=== PATIENT | male | born 1940 | race Caucasian/White ===

== ENCOUNTER 2019-07-08 16:01 | Inpatient (IN) | payer OTHER, MEDICARE ==
[~2019-07-08] VITALS: Ht 188 cm; Wt 92.0 kg
[2019-07-08] VITALS (8 sets, daily range): BP systolic 80–100; BP diastolic 42–63
[2019-07-08] MEDS ORDERED: LEVOTHYROXIN50 MCG PO (16:42)
[2019-07-08] MEDS ORDERED: CARVEDILOL25 MG PO (16:43)
[2019-07-08] MEDS ORDERED: ENTRESTO 24-261 TAB (16:44)
[2019-07-08 16:45] LABS: HEMATOCRIT 42.7 % (39.0-50.0); HEMOGLOBIN 13.8 g/dl (14.0-18.0); IMMATURE GRANULOCYTES 0.5 % (0.0-5.0); MEAN CELL VOLUME 87.7 fL CALC (80.0-100.0); MEAN CORPUSCULAR HGB 28.3 pG CALC (26.0-32.0); MEAN CORPUSCULAR HGB CONC 32.3 g/L CALC (32.0-36.0); NEUT# 6.78 thou/uL (1.82-7.42); RED BLOOD COUNT 4.87 mill/uL (4.70-6.10); RED CELL DISTRI WIDTH 17.7 % (11.5-15.5)
[2019-07-08] MEDS ORDERED: SIMVASTATIN40 MG PO (16:45)
[2019-07-08] MEDS ORDERED: SPIRONOLACT25 MG PO (16:45)
[2019-07-08] MEDS ORDERED: FUROSEMIDE20 MG PO (16:46)
[2019-07-08] MEDS ORDERED: PROTONIX40 M2 PO (16:46)
[2019-07-08] MEDS ORDERED: ASPIRIN81 MG PO (16:46)
[2019-07-08] MEDS ORDERED: B-12 10001000 MCG (16:47)
[2019-07-08] MEDS ORDERED: VITAMIN D-3400 UNIT PO (16:48)
[2019-07-08 16:58] LABS: INTERNATIONAL NORMALIZED RATIO 1.9 RATIO (0.7-1.3); PROTHROMBIN TIME 18.9 SECONDS (9.0-12.5)
[2019-07-08 17:16] LABS: ALBUMIN 3.2 g/dL (3.2-5.0); TOTAL PROTEIN 6.2 g/dL (6.3-8.2)
[2019-07-08 17:17] LABS: BILIRUBIN, TOTAL 2.2 mg/dL (0.0-1.4); CREATININE 3.1 mg/dL (0.7-1.3); POTASSIUM 4.7 mmol/l (3.5-5.1)
[2019-07-08 17:24] LABS: URINE BLOOD DIPSTICK NEGATIVE (NEGATIVE); URINE COLOR YELLOW; URINE GLUCOSE - DIPSTICK NEGATIVE (NEGATIVE); URINE KETONE NEGATIVE (NEGATIVE); URINE LEUK ESTERASE NEGATIVE (NEGATIVE); URINE NITRITE - DIPSTICK NEGATIVE (Negative); URINE PROTEIN - DIPSTICK TRACE mg/dL (NEG-TRACE); URINE SPECIFIC GRAVITY >=1.030
[2019-07-08 17:25] LABS: URINE BILIRUBIN - DIPSTICK SMALL (NEGATIVE)
[2019-07-08 17:46] LABS: TSH, 3RD GENERATION 5.86 uIU/mL (0.47 - 4.68)
[2019-07-09] VITALS (16 sets, daily range): BP systolic 81–101; BP diastolic 51–70
[2019-07-09 04:47] LABS: HEMOGLOBIN 14.7 g/dl (14.0-18.0); IMMATURE GRANULOCYTES 0.5 % (0.0-5.0); MEAN CELL VOLUME 87.5 fL CALC (80.0-100.0); MEAN CORPUSCULAR HGB 28.6 pG CALC (26.0-32.0); MEAN CORPUSCULAR HGB CONC 32.7 g/L CALC (32.0-36.0); NEUT# 5.94 thou/uL (1.82-7.42); RED BLOOD COUNT 5.14 mill/uL (4.70-6.10); RED CELL DISTRI WIDTH 17.8 % (11.5-15.5)
[2019-07-09 05:09] LABS: ALBUMIN 3.2 g/dL (3.2-5.0); BILIRUBIN, TOTAL 2.5 mg/dL (0.0-1.4); CREATININE 2.6 mg/dL (0.7-1.3); POTASSIUM 4.1 mmol/l (3.5-5.1); TOTAL PROTEIN 6.2 g/dL (6.3-8.2)
[2019-07-09] MEDS ORDERED: CARVEDILOL12.5 MG PO (12:24)
[2019-07-10 00:02] VITALS: BP 95/57
[2019-07-10 03:59] VITALS: BP 95/56
[2019-07-10 05:31] LABS: HEMATOCRIT 39.2 % (39.0-50.0); HEMOGLOBIN 12.9 g/dl (14.0-18.0); IMMATURE GRANULOCYTES 0.5 % (0.0-5.0); MEAN CELL VOLUME 87.9 fL CALC (80.0-100.0); MEAN CORPUSCULAR HGB 28.9 pG CALC (26.0-32.0); MEAN CORPUSCULAR HGB CONC 32.9 g/L CALC (32.0-36.0); NEUT# 4.24 thou/uL (1.82-7.42); RED BLOOD COUNT 4.46 mill/uL (4.70-6.10); RED CELL DISTRI WIDTH 17.8 % (11.5-15.5)
[2019-07-10 05:37] LABS: MAGNESIUM 1.9 mg/dL (1.6-2.3); POTASSIUM 3.9 mmol/l (3.5-5.1)
[2019-07-10 10:40] VITALS: BP 91/52
[2019-07-10 15:00] VITALS: BP 94/57
[2019-07-10 19:07] VITALS: BP 100/59
[2019-07-10 23:49] VITALS: BP 90/55
[2019-07-11 04:23] VITALS: BP 90/51
[2019-07-11 04:42] LABS: HEMATOCRIT 39.2 % (39.0-50.0); HEMOGLOBIN 12.9 g/dl (14.0-18.0); IMMATURE GRANULOCYTES 0.5 % (0.0-5.0); MEAN CELL VOLUME 87.7 fL CALC (80.0-100.0); MEAN CORPUSCULAR HGB 28.9 pG CALC (26.0-32.0); MEAN CORPUSCULAR HGB CONC 32.9 g/L CALC (32.0-36.0); NEUT# 2.71 thou/uL (1.82-7.42); RED BLOOD COUNT 4.47 mill/uL (4.70-6.10); RED CELL DISTRI WIDTH 17.9 % (11.5-15.5)
[2019-07-11 04:58] LABS: CREATININE 1.8 mg/dL (0.7-1.3); POTASSIUM 4.1 mmol/l (3.5-5.1)
[2019-07-11 07:45] VITALS: BP 99/65
[2019-07-11 11:22] VITALS: BP 88/59
[2019-07-11] MEDS ORDERED: ZITHROMAX500 MG PO (11:44)
== END 2019-07-11 15:41 | disposition home health service (06) | DRG 372 ==
LOC: ED 16:01 → ED-I 19:51 → MS2 20:09 → ICU 20:09 → ED 20:09 → MS2 07-09 14:11
PROVIDERS: Family Medicine; Nurse Practitioner Family; ADMIT Internal Medicine; ATTEND Internal Medicine
DX: A04.0 Enteropathogenic Escherichia coli infection (principal); N17.9 Acute kidney failure, unspecified; I13.0 Hypertensive heart and chronic kidney disease with heart failure and stage 1 through stage 4 chronic kidney disease, or unspecified chronic kidney disease; I50.9 Heart failure, unspecified; E03.9 Hypothyroidism, unspecified; E86.0 Dehydration; H54.62 Unqualified visual loss, left eye, normal vision right eye; I25.10 Atherosclerotic heart disease of native coronary artery without angina pectoris; Z90.49 Acquired absence of other specified parts of digestive tract; N18.9 Chronic kidney disease, unspecified

== ENCOUNTER 2019-07-12 17:04 | Observation (INO) | payer OTHER, MEDICARE ==
[~2019-07-12] VITALS: Ht 188 cm; Wt 94.4 kg
[~2019-07-12 17:04] MED LIST: ASPIRIN81 MG PO; B-12 10001000 MCG; CARVEDILOL12.5 MG PO; CARVEDILOL25 MG PO; ENTRESTO 24-261 TAB; LASIX 40 MG TAB40 MG PO; LEVOTHYROXIN75 MCG PO; PROTONIX40 M2 PO; SIMVASTATIN40 MG PO; SPIRONOLACT25 MG PO; VITAMIN D-3400 UNIT PO; ZITHROMAX500 MG PO
[2019-07-12 17:30] VITALS: BP 90/57
[2019-07-12 18:59] LABS: HEMATOCRIT 43.6 % (39.0-50.0); IMMATURE GRANULOCYTES 0.5 % (0.0-5.0); MEAN CELL VOLUME 89.5 fL CALC (80.0-100.0); MEAN CORPUSCULAR HGB 28.7 pG CALC (26.0-32.0); MEAN CORPUSCULAR HGB CONC 32.1 g/L CALC (32.0-36.0); NEUT# 4.3 thou/uL (1.82-7.42); RED BLOOD COUNT 4.87 mill/uL (4.70-6.10); RED CELL DISTRI WIDTH 18.6 % (11.5-15.5)
[2019-07-12 19:24] LABS: ALBUMIN 3.4 g/dL (3.2-5.0); BILIRUBIN, TOTAL 2.6 mg/dL (0.0-1.4); CREATININE 2.3 mg/dL (0.7-1.3); TOTAL PROTEIN 6.6 g/dL (6.3-8.2)
[2019-07-12 19:25] LABS: POTASSIUM 5.1 mmol/l (3.5-5.1)
[2019-07-12 19:40] VITALS: BP 95/52
[2019-07-13 04:40] VITALS: BP 100/65
[2019-07-13 06:39] LABS: HEMATOCRIT 43.1 % (39.0-50.0); MEAN CELL VOLUME 88.1 fL CALC (80.0-100.0); MEAN CORPUSCULAR HGB 28.6 pG CALC (26.0-32.0); MEAN CORPUSCULAR HGB CONC 32.5 g/L CALC (32.0-36.0); RED BLOOD COUNT 4.89 mill/uL (4.70-6.10); RED CELL DISTRI WIDTH 18.4 % (11.5-15.5)
[2019-07-13 06:49] LABS: CREATININE 2.2 mg/dL (0.7-1.3); MAGNESIUM 2.1 mg/dL (1.6-2.3); POTASSIUM 4.3 mmol/l (3.5-5.1)
[2019-07-13 07:33] VITALS: BP 101/54
[2019-07-13 12:43] LABS: INTERNATIONAL NORMALIZED RATIO 1.4 RATIO (0.7-1.3)
[2019-07-13 13:11] LABS: ALBUMIN 3.2 g/dL (3.2-5.0); DIRECT BILIRUBIN 0.1 mg/dl (0.0-0.3); TOTAL PROTEIN 6.3 g/dL (6.3-8.2)
[2019-07-13 16:32] VITALS: BP 113/69
[2019-07-13 16:46] LABS: URINE BILIRUBIN - DIPSTICK NEGATIVE (NEGATIVE); URINE BLOOD DIPSTICK LARGE (NEGATIVE); URINE COLOR YELLOW; URINE GLUCOSE - DIPSTICK NEGATIVE (NEGATIVE); URINE KETONE NEGATIVE (NEGATIVE); URINE LEUK ESTERASE NEGATIVE (NEGATIVE); URINE NITRITE - DIPSTICK NEGATIVE (Negative); URINE PH 5.5 (4.5-8.0); URINE PROTEIN - DIPSTICK 30 mg/dL (NEG-TRACE); URINE SPECIFIC GRAVITY 1.025
[2019-07-13 16:55] LABS: URINE WBC 0-2 WBC/hpf (0-5)
[2019-07-13 19:00] VITALS: BP 107/61
[2019-07-14 04:33] VITALS: BP 103/64
[2019-07-14 05:02] LABS: HEMATOCRIT 42.7 % (39.0-50.0); HEMOGLOBIN 13.9 g/dl (14.0-18.0); IMMATURE GRANULOCYTES 0.8 % (0.0-5.0); MEAN CELL VOLUME 86.6 fL CALC (80.0-100.0); MEAN CORPUSCULAR HGB 28.2 pG CALC (26.0-32.0); MEAN CORPUSCULAR HGB CONC 32.6 g/L CALC (32.0-36.0); NEUT# 4.59 thou/uL (1.82-7.42); RED BLOOD COUNT 4.93 mill/uL (4.70-6.10); RED CELL DISTRI WIDTH 18.2 % (11.5-15.5)
[2019-07-14 05:24] LABS: ALBUMIN 3.1 g/dL (3.2-5.0); BILIRUBIN, TOTAL 2.1 mg/dL (0.0-1.4); CREATININE 1.9 mg/dL (0.7-1.3); POTASSIUM 4.1 mmol/l (3.5-5.1)
[2019-07-14 07:44] VITALS: BP 94/57
[2019-07-14] MEDS ORDERED: TAMSULOSIN HCL0.4 MG PO (10:56)
[2019-07-14 15:05] VITALS: BP 104/61
== END 2019-07-14 17:02 | disposition home health service (06) | DRG 696 ==
LOC: MS2 17:04
PROVIDERS: Nurse Practitioner Family; ADMIT Internal Medicine; ATTEND Internal Medicine
PROC: 0T9B70Z Drainage of Bladder with Drainage Device, Via Natural or Artificial Opening (ICD-10-PCS; principal; 2019-07-12)
DX: R33.9 Retention of urine, unspecified (principal); N17.9 Acute kidney failure, unspecified; A04.0 Enteropathogenic Escherichia coli infection; I13.0 Hypertensive heart and chronic kidney disease with heart failure and stage 1 through stage 4 chronic kidney disease, or unspecified chronic kidney disease; I50.9 Heart failure, unspecified; N18.9 Chronic kidney disease, unspecified; E03.9 Hypothyroidism, unspecified; R74.0 Nonspecific elevation of levels of transaminase and lactic acid dehydrogenase [LDH]
CPT/HCPCS: G0378; G0379

== ENCOUNTER 2019-07-20 11:34 | Emergency (ER) | payer OTHER, MEDICARE ==
[~2019-07-20] VITALS: Ht 188 cm; Wt 105.0 kg
[~2019-07-20 11:34] MED LIST changes: +TAMSULOSIN HCL0.4 MG PO
[2019-07-20 12:46] LABS: HEMATOCRIT 41.4 % (39.0-50.0); HEMOGLOBIN 13.4 g/dl (14.0-18.0); IMMATURE GRANULOCYTES 0.5 % (0.0-5.0); MEAN CELL VOLUME 88.5 fL CALC (80.0-100.0); MEAN CORPUSCULAR HGB 28.6 pG CALC (26.0-32.0); MEAN CORPUSCULAR HGB CONC 32.4 g/L CALC (32.0-36.0); NEUT# 5.27 thou/uL (1.82-7.42); RED BLOOD COUNT 4.68 mill/uL (4.70-6.10); RED CELL DISTRI WIDTH 18.2 % (11.5-15.5)
[2019-07-20 13:02] LABS: ALBUMIN 3.5 g/dL (3.2-5.0); BILIRUBIN, TOTAL 2.5 mg/dL (0.0-1.4); CREATININE 1.7 mg/dL (0.7-1.3); POTASSIUM 4.3 mmol/l (3.5-5.1); TOTAL PROTEIN 6.7 g/dL (6.3-8.2)
[2019-07-20 13:32] LABS: TSH, 3RD GENERATION 7.53 uIU/mL (0.47 - 4.68)
[2019-07-20 13:54] VITALS: BP 95/54
== END 2019-07-20 13:54 | disposition home or self-care (01) | DRG 923 ==
LOC: ED 11:34
PROVIDERS: Family Medicine
DX: T68.XXXA Hypothermia, initial encounter (principal); X31.XXXA Exposure to excessive natural cold, initial encounter; I11.0 Hypertensive heart disease with heart failure; I50.9 Heart failure, unspecified; I25.10 Atherosclerotic heart disease of native coronary artery without angina pectoris

== ENCOUNTER 2019-08-02 06:47 | Observation (INO) | payer OTHER, MEDICARE ==
[~2019-08-02] VITALS: Ht 188 cm; Wt 90.3 kg
--- NOTE | 2019-08-02 06:58 | NUR ---
PT TO ROOM VIA WHEELCHAIR.
--- NOTE | 2019-08-02 07:10 | NUR ---
PT SKIN FEELS WARM TO THE TOUCH. RECTAL TEMP 101.2. MD AT BEDSIDE.
[2019-08-02 07:52] LABS: HEMATOCRIT 44.2 % (39.0-50.0); HEMOGLOBIN 14.4 g/dl (14.0-18.0); IMMATURE GRANULOCYTES 0.3 % (0.0-5.0); MEAN CELL VOLUME 88.4 fL CALC (80.0-100.0); MEAN CORPUSCULAR HGB 28.8 pG CALC (26.0-32.0); MEAN CORPUSCULAR HGB CONC 32.6 g/L CALC (32.0-36.0); NEUT# 5.57 thou/uL (1.82-7.42); RED CELL DISTRI WIDTH 17.8 % (11.5-15.5)
--- NOTE | 2019-08-02 08:00 | NUR ---
IVF AND ABT ORDERED, BC DRAW PREVIOUSLY.
[2019-08-02 08:08] LABS: BILIRUBIN, TOTAL 2.8 mg/dL (0.0-1.4); CREATININE 1.8 mg/dL (0.7-1.3); POTASSIUM 4.8 mmol/l (3.5-5.1); TOTAL PROTEIN 7.6 g/dL (6.3-8.2)
[2019-08-02] MEDS ORDERED: FINASTERIDE5 MG PO (08:23)
[2019-08-02] MEDS ORDERED: AMITRIPTYLIN10 MG PO (08:24)
[2019-08-02] MEDS ORDERED: MULTI VIT PO (08:26)
[2019-08-02] MEDS ORDERED: VITAMIN D-3400 UNIT PO (08:30)
--- NOTE | 2019-08-02 08:35 | NUR ---
PT RESTING ON STRETCHER FAMILY AT BEDSIDE. IVF RATE CHANGED PER VERBAL ORDER MD HERSON ALSO AWARE OF CONTINUED TEMP
--- NOTE | 2019-08-02 09:04 | NUR ---
REPEAT EKG PERFORMED FRO NOTED 11 BEAT RUN OV VTACH PER THE MONITOR. PT DENIES CP, SOB OR DIZZINESS. DENIES PALPITATIONS.EDP AWARE.
--- NOTE | 2019-08-02 09:30 | NUR ---
NEW IV ACCESS OBTAINED FOR AMIODARONE GTT, PT AWARE OF PLANNED ADMISSION TO ICU, HOLD ON AMIODARONE PER UNTIL HE SPEAKS WITH .
--- NOTE | 2019-08-02 10:31 | NUR ---
HOLDING AMIODARONE PER , WILL CONTINUE TO [facility] PT AWARE OF HOLD FOR MED SURG BED, OFFERS NO NEW COMPLAINTS TEMP 98.1 BLANKET PROVIDED
--- NOTE | 2019-08-02 11:08 | NUR ---
PT REPOSITIONED FOR COMFORT, CALL CARRANZA WITHIN REACH
--- NOTE | 2019-08-02 11:32 | NUR ---
[facility] for comfort awaiting move to med surg. MEaltray ordered for patient.
--- NOTE | 2019-08-02 12:19 | NUR ---
PT TOLERATED 50% OF MEAL, FAMILY MEMBERS BACK AT BEDSDIE, AWARE OF COINTINUED WAIT FOR ROMM ON MED SURG
--- NOTE | 2019-08-02 13:18 | NUR ---
PT OOB TO BSC, CONTINENT OF MODDERATE LOOSE BM, SELF SHERLEY CARE PROVIDED AND BACK TO BED WITH MOD ASSIST, TOLERATED ACTIVITY WELL.
--- NOTE | 2019-08-02 13:46 | NUR ---
REPORT CALLED TO ALDA LEO, ROOM 281 AND TELE [address] ASSIGNED
--- NOTE | 2019-08-02 13:54 | NUR ---
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[employer];PT DENIES ANY PAIN AT THIS TIME,PAIN SCALE AND REPORTIGN EDUCATED;ASSESSMENT COMPLETED;RESPIRATIONS SHALLOW ON RA,CLEAR/DIMINISHED LUNG SOUNDS NOTED;PT REPORTS PRODUCTIVE COUGH GREEN,THIN IN NATURE;SPUTUM SPECIMEN TO BE OBTAINED;WRITTER DID NOT VISUALIZE SPUTUM AT THIS TIME;ABDOMEN DISTENDED/SOFT ON PALPATION AND ACTIVE IN ALL 4 QUADRANTS,LAST BM 08/02/19;WEAK PEDAL PULSES;REDDENING TO RIGHT ANKLE NOTED AND WARM TO TOUCH;PHOTOGRAPH OBTAINED AND ANKLE ELEVATED ON A PILLOW;#20G TO LAC INFUSING LR WITH EASE AT THIS TIME;TELE MONITORING IN PLACE;#22G TO LEFT FOREARM FLUSHED AND PATENT,SITE APPEARS HEALTHY;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
--- NOTE | 2019-08-02 13:55 | NUR ---
PT TRANSFERRED TO [facility] SURG ROOM 281 VIA BED, NURSE ALDA AT BEDSIDE ON ARRIVAL
[2019-08-02 13:59] VITALS: BP 101/63
--- NOTE | 2019-08-02 15:37 | NUR ---
AND ROB CAMP,ANRP AT BEDSIDE DISCUSSING POC.
[2019-08-02 15:57] LABS: MAGNESIUM 1.6 mg/dL (1.6-2.3)
--- NOTE | 2019-08-02 16:10 | NUR ---
PT RESTING IN SEMI FOWLERS POSITION;RESPIRATIONS EVEN AND UNLABORED ON RA;PT DENIES ANY CURRENT PAIN OR NEEDS;RIGHT ANKLE REMAINS ELEVATED ON PILLOW;TELE MONITORING IN PLACE;PT ENCOURAGED TO CALL FOR ASSISTANCE IF NEEDED;CALL LIGHT IN REACH;WILL CONTINUE TO MONITOR
--- NOTE | 2019-08-02 16:29 | NUR ---
PT BLADDER SCANNED PER ORDER RESULTING IN 428ML.PT REFUSING TO ATTEMPT A VOID AT THIS TIME;DENIES ANY CURRENT PAIN OR DISCOMFORT;UNABLE TO PLACE RESULTS INTO CHART DUE TO BLADDER SCAN PRINTER BEING OUT OF INK.WILL CONTINUE TO MONITOR
--- NOTE | 2019-08-02 20:00 | NUR ---
PATIENT RESTING IN BED. ABLE TO MAKE NEEDS KNOWN. PATIENT C/O NAUSEA VOMITING. PT VOMITED TWICE. RECEIVED ORDER FOR ZOFRAN. WILL CONTINUE TO [facility][1].
[2019-08-02 21:30] VITALS: BP 95/55
--- NOTE | 2019-08-03 04:00 | NUR ---
PATIENT SLEPT WELL OVERNIGHT. NO C/O OF NAUSEA/VOMITTING. NO S/S OF DISTRESS. VITALS STABLE. CALL LIGHT IN REACH.
[2019-08-03 04:56] VITALS: BP 91/55
[2019-08-03 05:23] LABS: HEMATOCRIT 39.3 % (39.0-50.0); HEMOGLOBIN 12.9 g/dl (14.0-18.0); IMMATURE GRANULOCYTES 0.3 % (0.0-5.0); MEAN CELL VOLUME 88.1 fL CALC (80.0-100.0); MEAN CORPUSCULAR HGB 28.9 pG CALC (26.0-32.0); MEAN CORPUSCULAR HGB CONC 32.8 g/L CALC (32.0-36.0); NEUT# 4.23 thou/uL (1.82-7.42); RED BLOOD COUNT 4.46 mill/uL (4.70-6.10); RED CELL DISTRI WIDTH 17.7 % (11.5-15.5)
[2019-08-03 05:43] LABS: CREATININE 1.8 mg/dL (0.7-1.3); MAGNESIUM 1.6 mg/dL (1.6-2.3); POTASSIUM 4.6 mmol/l (3.5-5.1)
--- NOTE | 2019-08-03 07:00 | NUR ---
REPORT RECEIVED FROM CHUNG BRASHER;PT APPEARS TO BE SLEEPING IN SUPINE POSITION;NO S/S OF DISTRESS NOTED;RESPIRATIONS EVEN AND UNLABORED ON RA;TELE MONITORING IN PLACE;ALL SAFETY PRECAUTIONS IN PLACE WITH BED IN THE LOWEST POSITION AND CALL LIGHT IN REACH;WILL CONTINUE TO MONITOR
[2019-08-03 08:28] VITALS: BP 95/64
--- NOTE | 2019-08-03 08:30 | NUR ---
PT RESTING IN SEMI FOWLERS POSITION,A&O X4;VS OBTAINED AND ASSESSMENT COMPLETED;PT DENIES ANY CURRENT PAIN OR DISCOMFORTS,PAIN SCALE AND REPORTING EDUCATED;PT REPORTS MULTIPLE EMESIS AND LOOSE BM LAST NIGHT;RESPIRATIONS EVEN AND UNLABORED ON RA,CLEAR/DIMINISHED LUNG SOUNDS;NON-PRODUCTIVE COUGH AT TIMES;ABDOMEN DISTENDED/SOFT ON PALPATION AND ACTIVE IN ALL 4 QUADRANTS;WEAK PEDAL PULSES NOTED,REDDENING NOTED TO RIGHT ANKLE;PT REPORTS THAT TENDERNESS HAS DECREASED SINCE YESTERDAY 08/02/19;TELE MONITORING IN PLACE;#22G TO LEFT FOREARM FLUSHED AND PATENT,SITE APPEARS HEALTHY;PT DENIES ANY ADDITIONAL NEEDS AT THIS TIME AND IS ENCOURAGED TO CALL FOR ASSISTANCE IF NEEDED;CALL LIGHT IN REACH;WILL CONTINUE TO MONITOR
[2019-08-03 10:50] VITALS: BP 91/57
--- NOTE | 2019-08-03 10:58 | NUR ---
PHYSICAL THERAPY WORKING WITH PATIENT.
--- NOTE | 2019-08-03 11:50 | NUR ---
PT RESTING IN SEMI FOWLERS POSITION WITH FAMILY AT BEDSIDE;RESPIRATIONS EVEN AND UNLABORED ON RA;PT DENIES ANY CURRENT PAIN OR DISCOMFORTS;TELE MONITORING IN PLACE;IV SITE TO LFA REMAINS PATENT;PT UNDERSTANDS NPO DIET ORDER FOR ULTRASOUND;PT DENIES ANY ADDITIONAL NEEDS AND IS ENCOURAGED TO CALL FOR ASSISTANCE IF NEEDED;CALL LIGHT IN REACH;WILL CONTINUE TO MONITOR
--- NOTE | 2019-08-03 12:06 | NUR ---
AND ROB CAMP,ANRP AT BEDSIDE DISCUSSING POC WITH PATIENT.
--- NOTE | 2019-08-03 12:10 | NUR ---
AT BEDSIDE DISCUSSING POC.BLADDER SCAN OBTAINED PER RESULTING IN 229ML; DENIES THE NEED FOR A CATHETER AT THIS TIME;WILL CONTINUE TO MONITOR
--- NOTE | 2019-08-03 14:06 | NUR ---
PT TRANSPORTED TO [facility] IN STABLE CONDITION VIA WHEELCHAIR ACCOMPANIED BY VOLUNTEER.
--- NOTE | 2019-08-03 14:35 | NUR ---
PT RETURNED TO MED/SURG ROOM 281 IN STABLE CONDITON ACCOMPANIED BY VOLUNTEER.
[2019-08-03 15:33] VITALS: BP 92/58
--- NOTE | 2019-08-03 16:20 | NUR ---
PT APPEARS TO BE SLEEPING IN SUPINE POSITION;NO S/S OF DISTRESS NOTED;RESPIRATIONS EVEN AND UNLABORED ON RA;TELE MONITORING IN PLACE;IV SITE TO LFA PATENT;ALL SAFETY PRECAUTIONS IN PLACE WITH BED IN THE LOWEST POSITION AND CALL LIGHT IN REACH;WILL CONTINUE TO MONITOR
--- NOTE | 2019-08-03 19:20 | NUR ---
PT REPORT RECEIVED FROM DAY NURSE. PT SITTING IN BED W/LIGHTS ON WATCHING TV. URINAL AND CALL LIGHT W/IN REACH. PT DENIES ANY NEEDS AT THIS TIME.
[2019-08-03 19:30] VITALS: BP 94/55
--- NOTE | 2019-08-03 20:30 | NUR ---
PT ASSISTED TO RESTROOM AND BACK TO BED. PT DENIES PAIN/SOB UPON AMBULATING. ASSISTED BACK TO BE, REPOSITIONED. CALL LIGHT W/IN REACH AND PT ENCOURAGED TO CALL IF NEEDS ARISE. DINNER TRAY REMOVED FROM ROOM/90% DINNER EATEN.
[2019-08-03 23:36] VITALS: BP 85/55
--- NOTE | 2019-08-04 00:27 | NUR ---
PT SLEEPING AT THIS TIME. NO S/O DISTRESS NOTED. CALL LIGHT AT PT SIDE.
[2019-08-04 04:51] VITALS: BP 98/63
--- NOTE | 2019-08-04 05:02 | NUR ---
PT MEDICATED W/IV ANTIBIOTIC THERAPY. PT AWAKE AND SITTING ON SIDE OF THE BED. PT STATES HE IS "WAKING HIS BLADDER UP." AGREED TO ATTEMPT USE OF URINAL SOON SO PT CAN BE BLADDER SCANNED. WILL ASSIST PT, INSTRUCTED HIM TO CALL WHEN HE IS READY. PT DRINKING WATER AT THIS TIME SITTING ON SIDE OF BED W/CALL LIGHT W/IN REACH.
--- NOTE | 2019-08-04 05:20 | NUR ---
PT ASSISTED USING URINAL AT BEDSIDE/250CC OF CLEAR DARK YELLOW URINE OUTPUT MEASURED. PT BLADDER SCANNED IMMEDIATELY FOLLOWING URINATION/161CC OF URINE MEASURED ON SCAN.
[2019-08-04 05:52] LABS: URINE BILIRUBIN - DIPSTICK NEGATIVE (NEGATIVE); URINE BLOOD DIPSTICK NEGATIVE (NEGATIVE); URINE COLOR YELLOW; URINE GLUCOSE - DIPSTICK NEGATIVE (NEGATIVE); URINE KETONE NEGATIVE (NEGATIVE); URINE LEUK ESTERASE NEGATIVE (NEGATIVE); URINE NITRITE - DIPSTICK NEGATIVE (Negative); URINE PROTEIN - DIPSTICK NEGATIVE (NEG-TRACE); URINE SPECIFIC GRAVITY 1.025; URINE UROBILINOGEN - DIPSTICK 0.2 E.U./dL (0.2)
--- NOTE | 2019-08-04 07:59 | NUR ---
The patient is seen for ambualtion in [facility]. he wishes to go home. He is able to ambulate about 300 feet with vitals stable and no LOB but is using a FWW. He tells me he has FWW at home. Am PAc score of 16 indicating he would do well at home if other co- morbidities dont complicate his DC plan
[2019-08-04 08:35] VITALS: BP 95/49
--- NOTE | 2019-08-04 08:35 | NUR ---
SITTING UP AT SIDE OF BED. AWAKE, ALERT AND ORIENTED X3. RESP NON-LABORED, LUNGS CLEAR THROUGHOUT. ABD DISTENDED AND FIRM, BOWEL SOUNDS PRESENT. BILATERAL LOWER LEG EDEMA 3-4+ PITTING. PERIPHERAL PULSES INTACT. SALINE LOCK IN RFA, SITE BENIGN. VSS. DISCUSSED PLAN OF CARE. ENCOURAGED PATIENT TO KEEP LEGS ELEVATED EITHER IN THE BED OR UP IN A RECLINER. PATIENT VERBALIZES UNDERSTANDING. DENIES NEEDS AT THIS TIME. CALL CARRANZA IN REACH.
--- NOTE | 2019-08-04 10:20 | NUR ---
FAMILY AT BEDSIDE. PATIENT SITTING UP AT SIDE OF BED.
[2019-08-04 10:50] VITALS: BP 107/68
--- NOTE | 2019-08-04 12:20 | NUR ---
PATIENT TOLERATED LUNCH TRAY WELL. NO COMPLAINTS VOICED.
[2019-08-04 13:35] LABS: POTASSIUM 4.8 mmol/l (3.5-5.1)
[2019-08-04 15:05] VITALS: BP 102/68
--- NOTE | 2019-08-04 18:09 | NUR ---
SITTING UP AT SIDE OF BED. EATING DINNER. SALINE LOCK FLUSHED AND PATENT, SITE HEALTHY.
--- NOTE | 2019-08-04 18:45 | NUR ---
BLADDER SCANNED PATIENT-297 ML.
[2019-08-04 19:08] VITALS: BP 111/69
--- NOTE | 2019-08-04 19:15 | NUR ---
REPORT RECEIVED FROM CHUNG OCONNOR. PT RESTING IN BED. NO S/S OF DISTRESS AT THIS TIME. SAFETY PRECAUTIONS IN PLACE. WILL CONTINUE TO MONITOR.
--- NOTE | 2019-08-04 20:05 | NUR ---
PT RESTING IN BED PT FORGETFUL AT TIMES. RESPIRATIONS ARE SHALLOW ON ROOM AIR. LUNGS SOUND CLEAR. PEDAL PULSES STRONG. PT DENIES ANY PAIN OR DISCOMFORT AT THIS TIME. #24 RFA PATENT AND APPEARS HEALTHY. TELE IN PLACE. PT ENCOURAGED TO CALL IF ANY NEEDS SHOULD ARISE. PT PROVIDED WITH A WARM BLANKET PER REQUEST. CALL CARRANZA WITHIN REACH. WILL CONTINUE TO MONITOR.
--- NOTE | 2019-08-05 | NUR ---
PT RESTING IN BED. NO S/S OF DISTRES AT THIS TIME. TELE IN PLACE. CALL CARRANZA WITHIN REACH. WILL CONTINUE TO MONITOR.
[2019-08-05 00:30] VITALS: BP 103/63
--- NOTE | 2019-08-05 04:15 | NUR ---
PT RESTING IN BED. RESPIRATIONS EVEN AND UNLABORED ON RA. NO S/S OF DISTRESS AT THIS TIME. SAFETY PRECAUTIONS IN PLACE. WILL CONTINUE TO MONITOR.
[2019-08-05 05:18] VITALS: BP 95/60
--- NOTE | 2019-08-05 07:35 | NUR ---
ASLEEP ON ROUNDS. ASSESSMENT DEFERRED.
[2019-08-05 08:30] VITALS: BP 111/70
--- NOTE | 2019-08-05 08:30 | NUR ---
SITTING AT SIDE OF BED. AWAKE, ALERT AND ORIENTED, SOMEWHAT FORGETFUL AT TIMES. VSS. RESP NON-LABORED. LUNGS CLEAR. ABD DISTENDED AND FIRM WITH BOWEL SOUDNS PRESENT. PITTING EDEMA OF LOWER LEGS BIALTERALLY. PERIPHERAL PULSES PALPABLE. SALINE LOCK INTACT IN RFA, SITE BENIGN. TELEMETRY SHOWING PACED RHYTHM.
--- NOTE | 2019-08-05 09:44 | NUR ---
PATIENT PERFORMED GAIT TRAINING USING 2WW, 300 FEET, SBA FOR SAFETY AND VERBAL CUES ON SAFETY AWARENESS BY CONTROLLING GAIT SPEED AND ASSUMING AND MAINTAINING UPRIGHT POSTURE, AND INCORPORATE DDBE TO PREVENT DROPPING OF O2 SAT AND SUSTAIN LONGER AMBULATION. O2 SAT AND SD ARE WNL THROUGHOUT THE PT TREATMENT. AMPAC = 19
[2019-08-05 10:35] VITALS: BP 99/65
--- NOTE | 2019-08-05 12:05 | NUR ---
PATIENT EATING LUNCH. STATES VOIDED IN BR EARLIER. NO BM.
[2019-08-05 15:20] VITALS: BP 96/71
--- NOTE | 2019-08-05 16:30 | NUR ---
IV SITE IN RFA OCCLUDED, DC'D WITH CATHETER INTACT.
--- NOTE | 2019-08-05 16:45 | NUR ---
PATIENT STARTED GASTROGRAFIN. ATTEMPT TO RESTART SALINE LOCK UNSUCCESSFUL X 2 ATTEMPTS. INFORMED BY Vianney CAMP/KIMBER THAT PATIENT IS BEING DC'D HOME TONIGHT. CT CANCELLED AND NO NEED TO RESTART SALINE LOCK. PATIENT ADVISED HE IS GOING HOME.
--- NOTE | 2019-08-05 17:48 | NUR ---
Discharge instructions given. Patient verbalizes understanding of same. Discharged in stable condition via Wheelchair to Home with family. All belongings sent with pt.
== END 2019-08-05 17:48 | disposition home or self-care (01) | DRG 603 ==
LOC: ED 06:47 → ED-I 07:23 → ED 09:58 → MS2 09:59 → ED-I 09:59 → MS2 13:26
PROVIDERS: Family Medicine; Nurse Practitioner Family; ADMIT Internal Medicine; ATTEND Internal Medicine
DX: L03.115 Cellulitis of right lower limb (principal); I47.2 Ventricular tachycardia; I13.0 Hypertensive heart and chronic kidney disease with heart failure and stage 1 through stage 4 chronic kidney disease, or unspecified chronic kidney disease; I50.22 Chronic systolic (congestive) heart failure; I42.0 Dilated cardiomyopathy; N13.8 Other obstructive and reflux uropathy; M10.071 Idiopathic gout, right ankle and foot; N18.3 Chronic kidney disease, stage 3 (moderate); I25.10 Atherosclerotic heart disease of native coronary artery without angina pectoris; E03.9 Hypothyroidism, unspecified; M19.90 Unspecified osteoarthritis, unspecified site; K52.9 Noninfective gastroenteritis and colitis, unspecified; I44.7 Left bundle-branch block, unspecified; I08.3 Combined rheumatic disorders of mitral, aortic and tricuspid valves; E78.5 Hyperlipidemia, unspecified; N40.1 Benign prostatic hyperplasia with lower urinary tract symptoms; H54.62 Unqualified visual loss, left eye, normal vision right eye; N48.22 Cellulitis of corpus cavernosum and penis; R33.8 Other retention of urine; I73.9 Peripheral vascular disease, unspecified; R11.2 Nausea with vomiting, unspecified; R74.0 Nonspecific elevation of levels of transaminase and lactic acid dehydrogenase [LDH]; Z86.19 Personal history of other infectious and parasitic diseases
CPT/HCPCS: G0378; J0282; J1650; J3475

== ENCOUNTER 2019-11-16 12:43 | Inpatient (IN) | payer MEDICARE ==
[~2019-11-16] VITALS: Ht 188 cm; Wt 80.7 kg
[~2019-11-16 12:43] MED LIST changes: +AMITRIPTYLIN10 MG PO; +FINASTERIDE5 MG PO; +MULTI VIT PO
--- NOTE | 2019-11-16 14:15 | NUR ---
PT ARRIVED ON UNIT @ 1414, ALERT AND ORIENTED X 3, NO C/O PAIN BUT STATES HE HAS BEEN COUGHING FOR MORE THAN 1 WEEK NOW (DRY COUGH), DENIES FEVER. ORIENTED TO TOOM AND CALL CARRANZA, TELE MONITOR PLACED, WILL CONTINUE TO MONITOR.
[2019-11-16 16:00] VITALS: BP 97/52
[2019-11-16 16:19] LABS: HEMATOCRIT 36.8 % (39.0-50.0); IMMATURE GRANULOCYTES 0.4 % (0.0-5.0); MEAN CELL VOLUME 90.4 fL CALC (80.0-100.0); MEAN CORPUSCULAR HGB 29.5 pG CALC (26.0-32.0); MEAN CORPUSCULAR HGB CONC 32.6 g/L CALC (32.0-36.0); NEUT# 3.79 thou/uL (1.82-7.42); RED BLOOD COUNT 4.07 mill/uL (4.70-6.10); RED CELL DISTRI WIDTH 17.1 % (11.5-15.5)
[2019-11-16 16:25] VITALS: BP 86/51
[2019-11-16 16:42] LABS: ALBUMIN 3.1 g/dL (3.2-5.0); BILIRUBIN, TOTAL 1.9 mg/dL (0.0-1.4); POTASSIUM 3.7 mmol/l (3.5-5.1); TOTAL PROTEIN 6.1 g/dL (6.3-8.2)
[2019-11-16 16:45] LABS: CREATININE 2.9 mg/dL (0.7-1.3)
[2019-11-16 19:25] VITALS: BP 93/49
--- NOTE | 2019-11-16 19:25 | NUR ---
PT REQUEST TO HAVE NICKI URBINA ONLY VISITORS, NO ONE ELSE.
--- NOTE | 2019-11-16 20:15 | NUR ---
PHYSICAL ASSESMENT COMPLETE. PLAN OF CARE REVIEWED. PT VERBALIZES UNDERSTANDING, DENIES QUESTIONS. URINE SAMPLE COLLECTED AND SENT TO LAB. DENIES FURTHER NEEDS AT THIS TIME. CALL CARRANZA WITHIN REACH, AGREES TO CALL PRN. BED LOCKED IN LOW POSITION W/ BEDRAILS UPX2, PT'S ITEMS WITHIN REACH.
[2019-11-16 20:56] LABS: URINE BLOOD DIPSTICK NEGATIVE (NEGATIVE); URINE COLOR YELLOW; URINE GLUCOSE - DIPSTICK NEGATIVE (NEGATIVE); URINE KETONE NEGATIVE (NEGATIVE); URINE LEUK ESTERASE NEGATIVE (NEGATIVE); URINE NITRITE - DIPSTICK NEGATIVE (Negative); URINE PROTEIN - DIPSTICK NEGATIVE (NEG-TRACE); URINE SPECIFIC GRAVITY 1.025
[2019-11-16 20:59] LABS: URINE BILIRUBIN - DIPSTICK NEGATIVE (NEGATIVE)
[2019-11-17] VITALS (42 sets, daily range): BP systolic 77–124; BP diastolic 46–83
--- NOTE | 2019-11-17 00:20 | NUR ---
PT APPEARS TO BE SLEEPING COMFORTABLY. NO APPARENT DISTRESS. RESP REG & UNLABORED. CALL CARRANZA REMAINS WITHIN REACH. SAFETY AND FALL INTERVENTION REMAIN UNCHANGED.
--- NOTE | 2019-11-17 04:26 | NUR ---
PT SITTING UP IN BED, APPEARS COMFORTABLE. NO CHANGE IN PHYSICAL ASSESEMENT. REQUESTED [facility], PROVIDED PER REQUEST. DENIES FURTHER NEEDS AT THIS TIME. CALL CARRANZA WITHIN REACH, AGREES TO CALL PRN. FALL AND SAFETY INTERVENTIONS REMAIN IN PLACE.
[2019-11-17 05:45] LABS: BILIRUBIN, TOTAL 1.5 mg/dL (0.0-1.4); CREATININE 2.8 mg/dL (0.7-1.3); MAGNESIUM 1.8 mg/dL (1.6-2.3); TOTAL PROTEIN 5.9 g/dL (6.3-8.2)
--- NOTE | 2019-11-17 06:13 | NUR ---
SPOKE W/ DR. CUEVAS RE:ASYMPTOMATIC HYPOTENSION AND MINIMAL DIURESIS THROUGHOUT THIS SHIFT. SEEKING CLARIFICATION TO WETHER OR NOT LASIX DOSE SHOULD BE GIVEN THIS AM. ORDER IS TO HOLD DOSE UNTIL PT CAN BE FURTHER EVALUATED BY DOCTOR LATER THIS AM.
--- NOTE | 2019-11-17 07:20 | NUR ---
REPORT RECEIVED FROM CHUNG IRIZARRY. PT RESTING IN BED ON RIGHT SIDE; ALERT AND ORIENTED. DENIES PAIN. RESPIRATIONS EVEN AND UNLABORED ON ROOM AIR. RHONCHI THROUGHOUT LUNG SLATER; MORE PROMINENT ANTERIORLY. 1+ ANKLE EDEMA. PLAN OF CARE REVIEWED. PT ENCOURAGED TO VERBALIZE CONCERNS. STATES UNDERSTANDING. SAFETY MEASURES IN PLACE. CALL LIGHT WITHIN REACH.
--- NOTE | 2019-11-17 11:08 | NUR ---
PT OFF UNIT VIA WHEELCHAIR FOR ULTRASOUND GUIDED THORACENTESIS. NEW ORDERS TO TRANSFER PT TO ICU DUE TO LOW BLOOD PRESSURES AND CHF DX. ASSIGNED TO ROOM 7 BY CHUNG ISSA.
--- NOTE | 2019-11-17 11:25 | NUR ---
PT TO ICU BED 7 VIA WHEELCHAIR ACCOMAPNIED BY [facility] WILKES. BEDSIDE REPORT RECEIVED. PT IS ALERT AND ORIENTED X3. TRANSFER ASSESSMENT COMPLETED AT THIS TIME. IV PATENT X1. VSS. ORIENTED PT TO ROOM AND UNIT. CALL LIGHT IN REACH. WILL CONTINUE TO MONITOR
--- NOTE | 2019-11-17 11:45 | NUR ---
NOTIFIED DR STEPHENS FOR ORDERS FOR DOPAMINE. NEW ORDERS RECEIVED.
--- NOTE | 2019-11-17 12:00 | NUR ---
NOTIFIED DR STEPHENS FOR ORDERS FOR CENTRAL LINE. ORDERS RECEIVED TO CONSULT DR BOJORQUEZ. DR BOJORQUEZS OFFICE NOTIFIED.
--- NOTE | 2019-11-17 12:35 | NUR ---
CONSENT OBTAINED WITH DR BOJORQUEZ AT BEDSIDE FOR CENTRAL LINE PLACEMENT
--- NOTE | 2019-11-17 13:15 | NUR ---
CENTRAL LINE PLACED TO RIGHT SUBCLAVIAN BY DR BOJORQUEZ.
--- NOTE | 2019-11-17 13:34 | NUR ---
SARKAR PLACED USING STERILE TECHNIQUE WITH IMMEADIATE RETURN OF URINE.
--- NOTE | 2019-11-17 13:41 | NUR ---
RADIOLOGY AT BEDSIDE AT THIS TIME FOR PORTABLE CXR
--- NOTE | 2019-11-17 14:00 | NUR ---
SPOKE WITH DR BOJORQUEZ TO REVIEW CXR REPORT. OK TO USE TLC.
--- NOTE | 2019-11-17 14:10 | NUR ---
BUMEX AND DOPAMINE DRIP STARTED AT THIS TIME.
--- NOTE | 2019-11-17 14:20 | NUR ---
PT REMOVED MONITORS
--- NOTE | 2019-11-17 14:40 | NUR ---
PT VOMITTING IN ROOM. DR FRANKLIN NOTIFIED. NEW ORDERS RECIEVED.
--- NOTE | 2019-11-17 15:15 | NUR ---
PT CLEANSED OF EMESIS. LINENS CHANGED. ROOM CLEANSED BY EVS.
--- NOTE | 2019-11-17 15:30 | NUR ---
RHYTHM CHANGE NOTED. PT TACHY WITH WIDE QRS. EKG OBTAINED. DR RAY REVIEWED EKG. ST DEPRESSION WITH LBBB. LABS SENT FOR TROPONIN.
--- NOTE | 2019-11-17 15:50 | NUR ---
DR STEPHENS NOTIFIED OF EKG CHANGES. ORDERS RECIEVED TO HOLD DOPAMINE DRIP AND BUMEX DRIP AT THIS TIME.
--- NOTE | 2019-11-17 16:06 | NUR ---
PT RESTING IN BED AWAKE AT THIS TIME. RESP ARE EVEN AND UNLABORED. NO DISTRESS NTOED. CALL LIGHT IN REACH. WILL CONTINUE TO MONITOR.
--- NOTE | 2019-11-17 16:19 | NUR ---
MARISSA KENNY APRN AT BEDSIDE AT THIS TIME
--- NOTE | 2019-11-17 17:15 | NUR ---
DR STEPHENS AT BEDSIDE AT THIS TIME
--- NOTE | 2019-11-17 19:30 | NUR ---
RESTING IN BED ON ROUNDS. ALERT AND ORIENTED WITH APPROPRIATE RESPONSES TO QUESTIONS ALTHOUGH FORGETFUL. RESP SHALLOW, SLT LABORED. BREATHS SOUNDS CLEAR. ABD SOFT WITH BOWEL SOUNDS. SARKAR DRAINING CONCENTRATED SALONI URINE. SALINE LOCK IN PLACE IN LW, SITE BENIGN. RTLSC INTACT WITH BUMEX GTT AT O.5 MG/HR (5 ML/HR) INTO BLUE PORT AND DOPAMINE GTT INTO WHITE PORT RATE DECREASED TO 2.5 MCG/KG/MIN D/T HR >110. BROWN PORT IS HEP LOCKED. TLC DSG CDI. DISCUSSED PLAN OF CARE. PATIENT DENIES NEEDS AT THIS TIME. CALL CARRANZA IN REACH.
--- NOTE | 2019-11-17 22:00 | NUR ---
PATIENT FORGETFUL AND TRYING GET OOB AT TIMES. REMINDED PATIENT HE IS IN THE HOSPITAL. REVIEWED USE OF CALL CARRANZA FOR ASSISTANCE TO GET OOB. BED ALARM ON.
--- NOTE | 2019-11-17 23:55 | NUR ---
RESTING WITH EYES CLOSED. RESP SHALLOW, NON-LABORED. SR WITH IVCD ON MONITOR. BUMEX GTT CONTINUES AT 0.5 MG/HR AND DOPAMINE GTT AT 2.5 MCG/KG/MIN. SARKAR DRAINS CONCENTRATED SALONI URINE.
[2019-11-18] VITALS (26 sets, daily range): BP systolic 87–110; BP diastolic 49–79
--- NOTE | 2019-11-18 02:00 | NUR ---
PATIENT TURNS SELF FROM SIDE TO SIDE. RESTING WITH EYES CLOSED. NO CHANGES TO REPORT.
--- NOTE | 2019-11-18 04:30 | NUR ---
BLOOD DRAWN FOR AM LABS FROM [facility]. PORT FLUSHED PER PROTOCOL POST LAB DRAW.
[2019-11-18 04:45] LABS: HEMATOCRIT 36.4 % (39.0-50.0); HEMOGLOBIN 12.1 g/dl (14.0-18.0); MEAN CELL VOLUME 87.7 fL CALC (80.0-100.0); MEAN CORPUSCULAR HGB 29.2 pG CALC (26.0-32.0); MEAN CORPUSCULAR HGB CONC 33.2 g/L CALC (32.0-36.0); RED BLOOD COUNT 4.15 mill/uL (4.70-6.10); RED CELL DISTRI WIDTH 16.6 % (11.5-15.5)
--- NOTE | 2019-11-18 05:00 | NUR ---
PATIENT SITTING AT SIDE OF BED, STATES "I JUST WANTED TO SIT UP FOR AWHILE." OFFERED TO ASSIST PATINT TO RCLINER HE DECLINED. SAT FOR A FEW MINUTES THEN ASSISTED BACK INTO BED.
[2019-11-18 05:03] LABS: CREATININE 2.6 mg/dL (0.7-1.3)
[2019-11-18 05:04] LABS: ALBUMIN 3.3 g/dL (3.2-5.0); CREATININE 2.6 mg/dL (0.7-1.3); POTASSIUM 3.8 mmol/l (3.5-5.1)
--- NOTE | 2019-11-18 06:15 | NUR ---
RTLSC REMAINS INTACT. BUMEX GTT AT O.5 MG/HR AND DOPAMINE GTT AT 2.5 MCG/KG/MIN. SARKAR PATENT, URINE OUTPUT 1500 OF CONCENTRATED SALONI URINE. NO COMPLAINTS VOICED DURING THE NIGHT. MONITOR SR WITH IVCD AND OCC PVC'S.
--- NOTE | 2019-11-18 07:45 | NUR ---
REPORT RECEIVED FROM NIGHT NURSE. PT RESTING IN BED WITH EYES CLOSED. NO DISTRESS NOTED. DENIES PAIN. EDUCATED PATIENT ON FALL RISK STATUS AND TO CALL BEFORE GETTING OUT OF BED. WILL CONTINUE TO MONITOR.
--- NOTE | 2019-11-18 10:00 | NUR ---
PT RESTING IN BED. NO DISTRESS NOTED. DENIES PAIN. WILL CONTINUE TO MONITOR.
--- NOTE | 2019-11-18 11:25 | NUR ---
DR. STEPHENS AT BEDSIDE TO ASSESS PT
--- NOTE | 2019-11-18 12:45 | NUR ---
PT RESTING IN BED. DENIES PAIN. ATE LUNCH. NO DISTRESS NOTED. WILL CONTINUE TO MONITOR.
--- NOTE | 2019-11-18 14:20 | NUR ---
PT RESTING IN BED WITH EYES CLOSED. NO DISTRESS NOTED. WILL CONTINUE TO MONITOR.
--- NOTE | 2019-11-18 15:30 | NUR ---
PT NOTED TO HAVE BLUE FINGER NAIL BEDS. PT STATES THAT ITS NORMAL FOR HIM. NO DISTRESS NOTED. WILL CONTINUE TO MONITOR.
--- NOTE | 2019-11-18 16:22 | NUR ---
PT RESTING IN BED. NO DISTRESS NOTED. DENIES PAIN. NAIL BEDS NOTED TO BE BACK TO PINK COLOR. WILL CONTINUE TO MONITOR.
--- NOTE | 2019-11-18 19:45 | NUR ---
awakens easily. denies distress. o2 cont per nc. director of cardiac rehabilitation shows sinus rhythm ivcd pvcs. rt chest tlc in place. dopamine infusing @ 2.5mcg/kg/min, bumex gtt infusing @ 0.5mg/hr. tejeda cath in place draining yellow urine. bed alarm on. fall precautions cont.
--- NOTE | 2019-11-18 21:00 | NUR ---
awake. asked this residential mortgage underwriter "what's going on?" reoriented easily to surroundings.
--- NOTE | 2019-11-18 23:30 | NUR ---
bed alarm sounding. pt sitting on side of bed. reoriented without diff. instructed pt to get back in bed. pt asked "how do i get in bed?" instructed pt. bed alarm reactivated.
[2019-11-19] VITALS (38 sets, daily range): BP systolic 75–107; BP diastolic 50–74
--- NOTE | 2019-11-19 02:00 | NUR ---
eyes closed. no distress. court monitor shows sinus tach hr 108.
--- NOTE | 2019-11-19 04:00 | NUR ---
awake. assisted to side of bed per request. blood drawn & sent to lab.
--- NOTE | 2019-11-19 04:36 | NUR ---
assisted back in to bed.
[2019-11-19 05:13] LABS: HEMATOCRIT 37.4 % (39.0-50.0); HEMOGLOBIN 12.1 g/dl (14.0-18.0); MEAN CELL VOLUME 88.2 fL CALC (80.0-100.0); MEAN CORPUSCULAR HGB 28.5 pG CALC (26.0-32.0); MEAN CORPUSCULAR HGB CONC 32.4 g/L CALC (32.0-36.0); RED BLOOD COUNT 4.24 mill/uL (4.70-6.10); RED CELL DISTRI WIDTH 16.6 % (11.5-15.5)
[2019-11-19 05:38] LABS: CREATININE 2.5 mg/dL (0.7-1.3); MAGNESIUM 1.6 mg/dL (1.6-2.3); POTASSIUM 4.2 mmol/l (3.5-5.1)
--- NOTE | 2019-11-19 06:00 | NUR ---
awakens easily. med given.
--- NOTE | 2019-11-19 07:30 | NUR ---
REPORT RECEIVED FROM NIGHT NURSE. PT RESTING IN BED. WITH EYES CLOSED. DENIES PAIN. NO DISTRESS NOTED. PT ON DOPAMINE GTT AT 2.5 MCG/KG/MIN.
--- NOTE | 2019-11-19 08:35 | NUR ---
DR STEPHENS AT BEDSIDE TO ASSESS PT. PT NOTED TO HAVE BLUE LIPS AND NAIL BEDS. DR. STEPHENS NOTIFIED. PT STATED THAT ITS NORMAL FOR HIM. WILL CONTINUE TO MONITOR.
--- NOTE | 2019-11-19 10:40 | NUR ---
DR. JOHNSON AT BEDSIDE TO ASSESS PT
--- NOTE | 2019-11-19 10:49 | NUR ---
PT RESTING IN BED. NO DISTRESS NOTED. DENIES PAIN. STATES HE FEELS FINE. WILL CONTINUE TO MONITOR
--- NOTE | 2019-11-19 12:40 | NUR ---
PT UP IN BED FOR LUNCH. DENIES PAIN. NO DISTRESS NOTED. WILL CONTINUE TO MONITOR.
--- NOTE | 2019-11-19 14:30 | NUR ---
PT RESTING IN BED WITH EYES CLOSED. DENIES PAIN. NO DISTRESS NOTED. PT REFUSED BED BATH. STATED HE WANTS IT TOMORROW. WILL CONTINUE TO MONITOR
--- NOTE | 2019-11-19 16:32 | NUR ---
PT RESTING IN BED. DENIES PAIN. NO DISTRESS NOTED. PATIENT STATED HE IS FEELING OKAY. WILL CONTINUE TO MONITOR.
--- NOTE | 2019-11-19 17:37 | NUR ---
PATIENT BLOOD PRESSURE 70'S-80'S. ATTEMPTED TO INCREASE DOPAMINE PER PROTOCOL. WHEN INCREASED HEART RATE INCREASED TO 120'S. DR STEPHENS NOTIFIED. ORDER TO HOLD BUMEX TILL BP IMPROVES AND MIDODRINE ORDERED. WILL CONTINUE TO MONITOR.
--- NOTE | 2019-11-19 18:24 | NUR ---
PT RESTING IN BED. NO DISTRESS NOTED. DENIES PAIN. DENIES SOB AT THIS TIME. REPORT TO BE GIVEN TO NIGHT NURSE.
--- NOTE | 2019-11-19 19:45 | NUR ---
awakens easily. denies distress. o2 cont per nc. coke crane operator shows sinus rhythm pvcs ivcd hr 96. #22 lt hand saline lock. rt subl tlc in place. dopamine cont @ 2.5mcg/kg/min. tejeda cath in place. urine yellow. fall precautions cont. bed alarm on.
--- NOTE | 2019-11-19 21:00 | NUR ---
MAX assisted to bsc for bm. had small hard stool then back to bed. sob with exert. maikol well. bed alarm reactivated.
[2019-11-20] VITALS (25 sets, daily range): BP systolic 82–104; BP diastolic 42–74
--- NOTE | 2019-11-20 00:01 | NUR ---
eyes closed. no distress. manager cardiac shows sinus rhythm pvcs ivcd hr 98.
--- NOTE | 2019-11-20 02:00 | NUR ---
resting quietly. resps even & unlabored. no apparent distress. library monitor shows sinus rhythm hr 99
--- NOTE | 2019-11-20 04:00 | NUR ---
awake. assisted to side of bed per request.
--- NOTE | 2019-11-20 04:25 | NUR ---
blood drawn & sent to lab.
--- NOTE | 2019-11-20 04:45 | NUR ---
assisted into bed.
[2019-11-20 06:11] LABS: ALBUMIN 3.2 g/dL (3.2-5.0); CREATININE 2.2 mg/dL (0.7-1.3); POTASSIUM 3.8 mmol/l (3.5-5.1)
--- NOTE | 2019-11-20 07:57 | NUR ---
REPORT RECEIVED FROM NIGHT NURSE. PT RESTING IN BED. NO DISTRESS NOTED. DENIES PAIN. DOPAMINE GTT AR 2.5 MCG/KG/MIN. EDUCATED PATIENT ON FALL RISK STATUS. WILL CONTINUE TO MONITOR.
--- NOTE | 2019-11-20 10:45 | NUR ---
DR STEPHENS AT BEDSIDE TO ASSESS PT. PT STATING HEIS FEELING SOB. LUNGS SOUND CLEAR, OXYGEN SATURATION 94-97%., NC PLACED ON PT 2L. DR. STEPHENS NOTIFIED PT CONSTIPATED AND MILK OF MAG GIVEN THIS AM.
--- NOTE | 2019-11-20 11:22 | NUR ---
SPOKE WITH AASHISH, PT WENT HYPOTENSIVE LAST NIGHT SO BUMEX DRIP WAS STOPPED. MD WANTS TO RE-START TODAY. RE-TIMING FOR Q24H AT 1200, TODAY IS DAY 4, DR SAUCEDO NOT SAYS FOR 3-5 DAYS. STOPPING TOMORROW 11/20
--- NOTE | 2019-11-20 12:50 | NUR ---
PT ATTEMPTED TO HAVE A BM VIA BEDSIDE COMMODE. NO SUCCESS. NO DISTRESS NOTED. PT IN BED. WILL CONTINUE TO MONITOR.
--- NOTE | 2019-11-20 14:20 | NUR ---
PT SITTING UP AT THE EDGE OF THE BED. EDUCATED PATIENT NOT TO STAND UP WITHOUT RN PRESENT. EDUCATED PT ON FALL RISK STATUS. BED ALARM ON. WILL CONTINUE TO MONITOR.
--- NOTE | 2019-11-20 15:26 | NUR ---
EDUCATED PATIENT ON HOW TO USE IS. PT RETURNED DEMONSTRATION
--- NOTE | 2019-11-20 16:45 | NUR ---
PT RESTING IN BED WITH EYES CLOSED. NO DISTRESS NOTED. WILL CONTINUE TO MONITOR
--- NOTE | 2019-11-20 18:05 | NUR ---
PT RESTING IN BED WITH EYES CLOSED. NO DISTRESS NOTED. WILL CONTINUE TO MONITOR.
--- NOTE | 2019-11-20 19:30 | NUR ---
awake. nad. o2 off-replaced. quality assurance monitor shows sinus tach pacs pvcs. rt subcl tlc in place bumex infusing @ 0.5mghr, dopamine infusing @ 2.5mcg/kg/min. tejeda cath in place draining clear yellow urine. fall precautions & bed alarm cont.
--- NOTE | 2019-11-20 22:00 | NUR ---
eyes closed no distress. grain broker shows sinus tach pacs pvcs hr 106.
--- NOTE | 2019-11-20 23:00 | NUR ---
up to side of bed per request.
[2019-11-21] VITALS (19 sets, daily range): BP systolic 70–104; BP diastolic 44–73
--- NOTE | 2019-11-21 00:30 | NUR ---
assisted into bed.
--- NOTE | 2019-11-21 02:00 | NUR ---
resting quietly. resps even & unlabored. no distress.
--- NOTE | 2019-11-21 04:00 | NUR ---
bed alarm sounding. pt sitting on side of bed. rt subcl tlc dsg pulled off-replaced. bath given then up to chair. linen changed.
--- NOTE | 2019-11-21 05:15 | NUR ---
assisted back to bed.
[2019-11-21 05:16] LABS: HEMATOCRIT 35.3 % (39.0-50.0); MEAN CELL VOLUME 86.7 fL CALC (80.0-100.0); MEAN CORPUSCULAR HGB 29.5 pG CALC (26.0-32.0); RED BLOOD COUNT 4.07 mill/uL (4.70-6.10); RED CELL DISTRI WIDTH 16.5 % (11.5-15.5)
--- NOTE | 2019-11-21 05:25 | NUR ---
blood drawn & sent to lab.
[2019-11-21 05:43] LABS: CREATININE 2.1 mg/dL (0.7-1.3); POTASSIUM 3.6 mmol/l (3.5-5.1)
--- NOTE | 2019-11-21 07:45 | NUR ---
PT RESTING IN BED WITH EYES CLOSED. AROUSES TO VERBAL STIMULI. PT IS ALERT AND ORIENTED X3. SHIFT ASSESSMENT COMPLETED AT THIS TIME. IV PATENT X1. CALL LIGHT IN REACH. WILL CON TINUE TO MONITOR.
--- NOTE | 2019-11-21 08:00 | NUR ---
PT SET UP FOR AM MEAL
--- NOTE | 2019-11-21 08:51 | NUR ---
DR STEPHENS AT BEDSIDE AT THIS TIME.
--- NOTE | 2019-11-21 10:00 | NUR ---
PT SITTING UP ON SIDE OF BED. VISITORS IN ROOM AT THIS TIME.
--- NOTE | 2019-11-21 11:45 | NUR ---
RADIOLOGY AT BEDSIDE FOR PORTABLE ULTRASOUND
--- NOTE | 2019-11-21 12:15 | NUR ---
PT SET UP FOR NOON MEAL
--- NOTE | 2019-11-21 12:50 | NUR ---
DR ENCISO INTO SEE PATIENT
--- NOTE | 2019-11-21 14:00 | NUR ---
PT RESTING IN BED AWAKE. RESP ARE EVEN AND UNLABORED. NO DISTRESS NOTED. CALL LIGHT IN REACH. WILL CONTINUE TO MONIOTR.
--- NOTE | 2019-11-21 16:00 | NUR ---
PT RESTING IN BED AWAKE. RESP ARE EVEN AND UNABORED. NO DISTRESS NOTED. CALL LIGHT IN REACH. WILL CONTINUE TO MONITOR.
--- NOTE | 2019-11-21 17:45 | NUR ---
PT SET UP FOR PM MEAL
--- NOTE | 2019-11-21 18:25 | NUR ---
PT RESTING IN BED. RESP ARE EVEN AND UNLABORED. NO DISTRESS NOTED. CALL LIGHT IN REACH. WILL CONTINUE TO MONITOR.
--- NOTE | 2019-11-21 19:40 | NUR ---
PATIENT SITS ON SIDE OF BED. REQUEST TO LAY DOWN, ASSISTED TO LAY DOWN, HOB NEAR 30 DEGREES. PLACED HIS O2 BACK ON, HE HAD IT ON TOP OF HIS HEAD REMINDED TO NOT PULL IT OFF. ALERT AND ORIENTED X3. NURSING ASSESSMENT PERFORMED. DENIES PAIN. SARKAR CATH INTACT, URINE YELLOW/CLOUDY. RSC TRIPLE LUMEN INTACT RETURNS BLOOD. BUMEX AND DOPAMINE INFUSING PROPERLY.AFBERILE. POC FOR TONIGHT DISCUSSED. CALL LIGHT WITHIN REACH.
--- NOTE | 2019-11-21 23:14 | NUR ---
PATIENT LAYS ON HIS LEFT SIDE. RESTS WITH EYES CLOSED. NO ACUTE DISTRESS SHOWN. O2 TITRATED TO 3L/MIN NC DUE TO SATS 87%. CALL LIGHT WITHIN REACH.
[2019-11-22] VITALS (18 sets, daily range): BP systolic 75–107; BP diastolic 44–67
--- NOTE | 2019-11-22 00:16 | NUR ---
PATIENT RESTS WITH EYES CLOSED. SATS 94% N 3L/MIN NC. CALL LIGHT WITHIN REACH.
--- NOTE | 2019-11-22 02:15 | NUR ---
PATIENT ATTEMPTS TO PULL HIS PULSE OX OFF, EDUCATED TO LEAVE IT ON, ALSO HAD HIS O2 ON HIS HEAD. CALL LIGHT WITHIN REACH.
--- NOTE | 2019-11-22 03:56 | NUR ---
PATIENT BEGAN PULLING OFF HIS BP CUFF, HIS PULSE OX AND HIS ARM BANDS. HE AGREED TO GET WASHED UP. LINENS CHANGED, PT ABLE TO WASH HIS FACE UP. LOTION APPLIED. NOW LAYS BACK IN BED, ON 3L/MIN NC, SATS 95%. NO ACUTE DISTRESS SHOWN. CALL LIGHT WITHIN REACH.
[2019-11-22 05:46] LABS: CREATININE 2.2 mg/dL (0.7-1.3); MAGNESIUM 1.7 mg/dL (1.6-2.3); POTASSIUM 3.7 mmol/l (3.5-5.1)
--- NOTE | 2019-11-22 05:46 | NUR ---
PATIENT SITS UP ON SIDE OF BED, INSISTS TO BE SAT UP, PT EXPLAINED HE IS SITTNG UP. RECEIVING SYNTHROID DUE THIS AM.
--- NOTE | 2019-11-22 07:30 | NUR ---
PT SITTING UP ON SIDE OF BED. PT IS ALERT AND ORIENTED X3. SHIFT ASSESSMENT COMPLETED AT THIS TIME. IV PATENT X1. CALL LIGHT IN REACH. WILL CONTIMUE TO MONITOR.
--- NOTE | 2019-11-22 07:50 | NUR ---
PT SET UP FOR AM MEAL.
--- NOTE | 2019-11-22 08:57 | NUR ---
DR STEPHENS AT BEDSIDE. PHONED SON JAMIE URBINA TO COME TO [facility] TO DICUSS PLAN OF CARE WITH .
--- NOTE | 2019-11-22 09:10 | NUR ---
DR STEPHENS AT BEDSIDE WITH PATIENT AND FAMILY. PATIENT STATES THAT HE DOES NOT WANT TO BE RESUSCITATED. DNR ORDER SIGNED.
--- NOTE | 2019-11-22 09:30 | NUR ---
WENT TO GIVE PATIENT HIS MEDICATIONS. PATIENT REFUSED. REPOSITIONED PATIENT BACK IN BED.
--- NOTE | 2019-11-22 10:13 | NUR ---
PT RESTING IN BED WITH EYES CLOSED. RESP ARE EVEN AND UNLABORED NO DISTRESS NTOED CALL LIGHT IN REACH. WILL CONTINUE OT MONITOR
--- NOTE | 2019-11-22 11:40 | NUR ---
PT SET UP FOR NOON MEAL. FAMILY AT BEDSIDE
--- NOTE | 2019-11-22 13:08 | NUR ---
PT SITTING UP IN BED WITH VISITORS AT BEDSIDE. RESP ARE EVEN AND UNLABORED. NO DISTRESS NOTED. CALL LIHGT IN REACH. WILL CONTINUE TO MONITOR.
--- NOTE | 2019-11-22 14:23 | NUR ---
PT ASSISTED TO SITTING UP ON SIDE OF BED,. RESP ARE EVNE AND UNLABORED. NO DISTRESS NOTED. CALL LIGHT INR EACH. WILL CONTINUE TO MONITOR,
--- NOTE | 2019-11-22 16:03 | NUR ---
PT REPOSITIONED TO A LYING DOWN POSITION. FAMILY AT BEDSIDE. RESP ARE EVEN AND UNLABORED. NO DISTRESS NOTED. CALL LIGHT IN REACH. WILL CONTINUE TO MONITOR
--- NOTE | 2019-11-22 17:33 | NUR ---
PT SET UP FOR PM MEAL
--- NOTE | 2019-11-22 18:06 | NUR ---
PT REPOSITIONED UP IN BED. CALL LIGHT IN REACH. WILL CONTINUE TO MONITOR
--- NOTE | 2019-11-22 18:22 | NUR ---
REPORT FROM Tariq BRIDGES RN. ASSUMED PT. CARE.
--- NOTE | 2019-11-22 19:40 | NUR ---
RESTING IN BED. SON AND [id number] AT BEDSIDE. PATIENT VEBRALIZES ABOUT SEVERITY OF ILLNESS AND MAKING HIMSELF A DNR. EMOTIONAL SUPPORT AND REASSURANCE PROVIDED. RESP SHALLOW, SLT LABORED. BREATH SOUNDS DIMINISHED THROUGHOUT. GENERALIZED EDEMA, PEDAL PULSES THREADY. RTLSC IN PLACE ALL PORTS LOCKED, DSG CDI. ACCOUNTS PAYABLE ASSISTANT SHOWS SR-ST WITH OCC PVC'S AND IVCS. EXPLAINED PLAN OF CARE. DENIES NEEDS AT THIS TIME.
--- NOTE | 2019-11-22 20:00 | NUR ---
REPORTED TO DR CUEVAS PATIENT RESTLESSNESS, SOB ANDC/O GENERALIZED DISCOMFORTS. NEW ORDERS RECEIVED.
--- NOTE | 2019-11-22 20:50 | NUR ---
MEDICATED WITHMORPHINE 1 MG IVP ORDERED. SUPPORT AND REASSURANCE PROVIDED TO PATIENT.
--- NOTE | 2019-11-22 21:45 | NUR ---
PATIENT SAT AT SIDE OF BED FOR A FEW MINUTES PER HIS REQUEST, ASSISTED BACK INTO BED AT THIS TIME. ENCOURAGED TO REST.
--- NOTE | 2019-11-22 23:20 | NUR ---
MEDICATED WITH MORPHINE FOR RESTLESSNESS AND SOB, GENERALIZED DISCOMFORTS. REPOSITIONED IN BED.
[2019-11-23] VITALS (7 sets, daily range): BP systolic 79–104; BP diastolic 45–67
--- NOTE | 2019-11-23 00:05 | NUR ---
RESTING WITH EYES CLOSED. NOT RESTLESS AFTER BEING MEDICATED EARLIER. VSS.
--- NOTE | 2019-11-23 02:00 | NUR ---
RESTING WITH EYES CLOSED. RESP SHALLOW, NON-LABORED.
--- NOTE | 2019-11-23 04:30 | NUR ---
RTLSC INTACT, ALL PORTS HAVE GOOD BLOOD RETURN FLUSHED AND PATENT. BLOOD DRAWMN FOR AM LABS.
--- NOTE | 2019-11-23 04:40 | NUR ---
MEDICATED WITH MORPHINE ORDERED. PATIENT REFUSES REPOSITIONING AT THIS TIME.
[2019-11-23 04:54] LABS: CREATININE 2.4 mg/dL (0.7-1.3); POTASSIUM 3.4 mmol/l (3.5-5.1)
--- NOTE | 2019-11-23 07:15 | NUR ---
PT RESTING IN BED WITH EYES CLOSED. PT IS ALERT AND ORIENTED X3. SHIFT ASSESSMENT COMPLETED AT THIS TIME. IV PATENT X1. CALL LIGHT IN REACH. WILL CONTINUE TO MONITOR.
--- NOTE | 2019-11-23 07:29 | NUR ---
DR STEPHENS AT BEDSIDE AT THIS TIME
--- NOTE | 2019-11-23 07:50 | NUR ---
PT SET UP FOR AM MEAL. PT STATES HE DOES NOT WANT TO EAT RIGHT NOW.
--- NOTE | 2019-11-23 08:00 | NUR ---
PATIENT A&O X3. PATIENT RATED PATIENT 6 OUT OF 10 IN LOER BACK. NO NEW SKIN ISSUES NOTED. HEAD TO TOE ASSESSMENT COMPLETED. ABD AREA SOFT. PATIENT IS A 1 ASSIST AND ABLE TO MAKE HER NEEDS KNOWN. IV INTACT. LUNG SOUNDS CLEAR.
--- NOTE | 2019-11-23 08:36 | NUR ---
GRANDDAUGHTER CALLED FOR UPDATE. UPDATE. PROVIDED.
--- NOTE | 2019-11-23 08:43 | NUR ---
PHONED MED SURG FOR BED ASSIGNMENT. PT WILL GO TO 290.
--- NOTE | 2019-11-23 09:25 | NUR ---
PT TO [facility] VIA BED BEDSIDE REPORT GIVEN TO SAIMA WILKES. PT TOLERATED TRANSFER WELL.
--- NOTE | 2019-11-23 10:00 | NUR ---
Patient Transfered to unit. Patient a&O. tejeda in place because patient was on a drip and it was used for I&O but no order to take out. No knew skin issues noted. Patient did not verbalize pain. Abd soft and nontender. Lung sounds dimmished
--- NOTE | 2019-11-23 19:38 | NUR ---
PT RESTING IN BED, NO SIGNS OF DISTRESS NOTED, RESP EVEN AND UNLABORED. PT HARD OF HEARING. ALERT AND ORIENTED X3, DISCUSSED POC, PT HAS SARKAR DRAINING TO GRAVITY, CENTRAL LINE TO RSUBCLAV TRIPLE LUMEN. BRUISING NOTED TO CHEST, ASSESSMENT COMPLETED,CALL LIGHT IN REACH,CONTINUE TO MONITOR.
--- NOTE | 2019-11-23 22:17 | NUR ---
IV ANTIBIOTIC INITIATED. PT VOICES NO NEEDS OR COMPLAINTS, CALL LIGHT IN REACH,CONTINUE TO MONITOR.
--- NOTE | 2019-11-24 | NUR ---
PT RESTING IN BED WITH EYES CLOSED, NO SIGNS OF DISTRESS NOTED, RESP EVEN AND UNLABORED. CALL LIGHT IN REACH,CONTINUE TO MONITOR.
[2019-11-24 03:38] VITALS: BP 102/62
--- NOTE | 2019-11-24 06:00 | NUR ---
PT MEDICATED WITH SYNTHROID, NO SIGNS OF DISTRESS NOTED, CALL LIGHT IN REACH,CONTINUE TO MONITOR.
--- NOTE | 2019-11-24 07:20 | NUR ---
REPORT RECEIVED FROM AHMET BRIDGES;PT APPEARS TO BE SLEEPING IN SEMI FOWLERS POSITION;NO S/S OF DISTRESS NOTED;RESPIRATIONS SHALLOW ON O2 @ 2L VIA NC;ALL SAFETY PRECAUTIONS IN PLACE WITH BED IN THE LOWEST POSITION AND CALL LIGHT IN REACH;WILL CONTINUE TO MONITOR
[2019-11-24 08:20] LABS: CREATININE 2.2 mg/dL (0.7-1.3); MAGNESIUM 1.8 mg/dL (1.6-2.3); POTASSIUM 3.5 mmol/l (3.5-5.1)
[2019-11-24 08:44] VITALS: BP 100/64
--- NOTE | 2019-11-24 08:45 | NUR ---
PT RESTING IN SEMI FOWLERS POSITION,A&O X3 BUT HARD OF HEARING;VS OBTAINED AND ASSESSMENT COMPLETED;PT DENIES ANY CURRENT PAIN OR DISCOMFORTS,PAIN SCALE AND REPORTING EDUCATED;RESPIRATIONS SHALLOW ON O2 @ 3L VIA NC;ABDOMEN DISTENDED/FIRM ON PALPATION AND ACTIVE IN ALL 4 QUADRANTS;SARKAR CATHETER PATENT DRAINING TO GRAVITY WITH EASE;WEAK PEDAL PULSES;TLC RSC FLUSHED AND PATENT,GOOD BLOOD RETURN NOTED;PT DENIES ANY ADDITIONAL NEEDS AND IS ENCOURAGED TO CALL FOR ASSISTANCE IF NEEDED;FALL PRECAUTIONS IN PLACE WITH BED IN THE LOWEST POSITION AND CALL LIGHT IN REACH;WILL CONTINUE TO MONITOR
--- NOTE | 2019-11-24 09:29 | NUR ---
AT BEDSIDE DISCUSSING POC.
[2019-11-24 11:07] VITALS: BP 100/54
--- NOTE | 2019-11-24 11:15 | NUR ---
PHYSICAL THERAPY WORKING WITH PT.
--- NOTE | 2019-11-24 11:30 | NUR ---
PT RESTING IN SEMI FOWLERS POSITION WITH PHYSICAL THERAPY AT BEDSIDE;RESPIRATIONS REMAIN EVEN AND UNLABORED ON O2 @ 2L VIA NC;PT DENIES ANY CURRENT PAIN OR DISCOMFORTS;TELE MONITORING IN PLACE;SARKAR CATHETER REMAINS PATENT DRAINING URINE TO GRAVITY WITH EASE;ASSESSMENT REMAINS UNCHANGED AT THIS TIME;PT ENCOURAGED TO CALL FOR ASSISTANCE IF NEEDED;FALL PRECAUTIONS IN PLACE WITH CALL LIGHT IN REACH;WILL CONTINUE TO MONITOR
[2019-11-24 15:10] VITALS: BP 89/49
--- NOTE | 2019-11-24 15:30 | NUR ---
PT RESTING IN SEMI FOWLERS POSITION WITH VISITORS AT BEDSIDE;RESPIRATIONS REMAIN SHALLOW ON O2 @ 2L VIA NC;PT DENIES ANY CURRENT PAIN OR NEEDS;TELE MONITORING IN PLACE;IV SITE PATENT;SARKAR CATHETER DRAINING TO GRAVITY WITH EASE;PT DENIES ANY ADDITIONAL NEEDS AT THIS TIME AND IS ENCOURAGED TO CALL FOR ASSISTANCE IF NEEDED;FALL PRECAUTIONS REMAIN IN PLACE WITH BED IN THE LOWEST POSITION AND CALL LIGHT IN REACH;WILL CONTINUE TO MONITOR
[2019-11-24 15:50] VITALS: BP 93/60
[2019-11-24 19:05] VITALS: BP 90/54
--- NOTE | 2019-11-24 19:15 | NUR ---
CHANGE OF SHIFT REPORT RECEIVED FROM CHUNG MAN. PT SITTINGF UP IN BED. NO S/S OF AGITATION. PT DENIES PAIN. NEW CAR INSPECTOR WILL CONTINUE TO MONITOR.
--- NOTE | 2019-11-25 | NUR ---
PT AWAKE SITTING UP IN BED. PT WANT'S LIGHT IN ROOM ON. PT DENIES PAIN. PT REFUSES MEDICATION FOR SLEEP. NEWS CORRESPONDENT WILL CONTINUE TO MONITOR
[2019-11-25 00:14] VITALS: BP 101/64
[2019-11-25 04:10] VITALS: BP 89/56
--- NOTE | 2019-11-25 04:40 | NUR ---
PATIENT HAD SMALL FORM STOOL. PT BACK IN BED; AGREE TO HAVE LIGHT TURNED OF. PT RESTING COMFORTABLY. AIRFRAME AND POWER PLANT MECHANIC WILL CONTINUE TO MONITOR.
[2019-11-25 05:46] LABS: HEMATOCRIT 37.8 % (39.0-50.0); HEMOGLOBIN 12.3 g/dl (14.0-18.0); MEAN CELL VOLUME 89.2 fL CALC (80.0-100.0); MEAN CORPUSCULAR HGB CONC 32.5 g/dL CAL (32.0-36.0); RED BLOOD COUNT 4.24 mill/uL (4.70-6.10); RED CELL DISTRI WIDTH 18.4 % (11.5-15.5)
[2019-11-25 06:13] LABS: CREATININE 2.3 mg/dL (0.7-1.3); POTASSIUM 4.2 mmol/l (3.5-5.1)
--- NOTE | 2019-11-25 06:29 | NUR ---
DR STEPHENS NOTIFIED OF CRITICAL LAB LEVEL. BUN OF 84. DOCTOR ALSO NOTIFIED OF CREATINE LEVEL OF 2.3. NO NEW ORDERS AT THIS TIME
--- NOTE | 2019-11-25 07:30 | NUR ---
REPORT RECEIVED FROM CHUNG BUSH. PT RESTING IN BED; ALERT AND ORIENTED X 2. DENIES PAIN. RESPIRATIONS EVEN AND UNLABORED ON ROOM AIR. LUNGS ARE COURSE WITH SOME WHEEZING; ABDOMEN DISTENDED AND FIRM; ANKLE EDEMA; SKIN IS JAUNDICE. PLAN OF CARE REVIEWED. PT ENCOURAGED TO VERBALIZE CONCERNS. STATES UNDERSTANDING. SAFETY MEASURES IN PLACE. CALL LIGHT WITHIN REACH.
[2019-11-25 07:59] VITALS: BP 80/39
--- NOTE | 2019-11-25 10:12 | NUR ---
MILK OF MAG GIVEN WITH AM MEDS. PT REPORTS SMALL FORMED BOWEL MOVEMENT THIS MORNING. FAMILY AT BEDSIDE. SITTING UP IN BED; ALERT AND ORIENTED.
[2019-11-25 15:00] VITALS: BP 96/54
--- NOTE | 2019-11-25 15:30 | NUR ---
PT AWAKE TALKING ON PHONE WITH SISTER; OTHER FAMILY MEMBERS AT BEDSIDE. TRIPLE LUMEN CATHETER TO RIGHT SUBCLAVIAN FLUSHES WELL WITH GOOD BLOOD RETURN. NO REQUESTS OR CONCERNS AT THIS TIME. CALL LIGHT WITHIN REACH.
--- NOTE | 2019-11-25 16:13 | NUR ---
11/25/2019 Patient is seen for funcitonal assessment and training. He wass noted to have a very high BUN on his labwork. His vitals were a little blunted as well but he presents resting connfortably . He was able to sit EOB and has walked in his room today with FWW and assist with vitals stable . Am Pac score on this patient is unchanged. He would do well in ECF for monitoring and slow, graded rehabilitation to improve his function, decrcease his fall risk and decrease the burden of care
--- NOTE | 2019-11-25 18:05 | NUR ---
PT SITTING UP ON EDGE OF BED. OXYGEN ON. TELE ON. TRIPLE LUMEN RIGHT UPPER CHEST CENTRAL LINE FLUSHES WELL AND HAS GOOD BLOOD RETURN.
--- NOTE | 2019-11-25 19:04 | NUR ---
REPORT RECEIVED FROM CHUNG SALOMON. PT SITTING ON THE SIDE OF THE BED. NO S/S OF DISTRESS AT THIS TIME. SAFETY PRECAUTIONS IN PLACE. WILL CONTINUE TO MONITOR.
[2019-11-25 20:50] VITALS: BP 114/64
--- NOTE | 2019-11-25 20:59 | NUR ---
PT SITTING ON THE SIDE OF THE BED. PT ALERT WITH CONFUSSION. RESPIRATIONS EVEN AND UNLABORED ON RA. LUNGS SOUND CLEAR. TELE IN PLACE. PT CLEANED UP FROM A MODERATE BM, LINENS CHANGED PT ASSISTED TO BED. PT PROVIDED WITH A WARM BLANKET PER REQUEST. BED ALARM ACTIVE FOR PT SAFETY. WILL CONTINUE TO MONITOR.
[2019-11-26 00:08] VITALS: BP 82/52
--- NOTE | 2019-11-26 00:47 | NUR ---
PT RESTTING IN BED. RESPIRATIONS EVEN AND UNLABORED ON RA. TELE IN PLACE. BED ALARM ACTIVE FOR PT SAFETY. WILL CONTINUE TO MONITOR.
--- NOTE | 2019-11-26 04:30 | NUR ---
PT CLEANED UP FROM LARGE BM IN BED, LINENS CHANGED, AND PT REPOSITIONED IN BED. SAFETY PRECAUTIONS IN PLACE. WILL CONTINUE TO MONITOR.
[2019-11-26 04:55] VITALS: BP 80/50
--- NOTE | 2019-11-26 08:01 | NUR ---
PATIENT SITTING UPRIGHT IN BED EATING BREAKFAST, PATIENT HAS NO COMPLIANTS.
[2019-11-26 08:36] VITALS: BP 106/69
--- NOTE | 2019-11-26 11:02 | NUR ---
NURSE PRACTIONER MADE AWARE PT REFUSED TO EAT AND HIS MEDICINE THIS MORNING. REQUEST POTASSIUM TO BE CHANGED TO IV. PATIENT IS ALERT AND ORIENTED X 4. PATIENT IS FOLLOWING COMMANDS, PATIENT IS LIMITING MEDICATION HE TAKE STATED" HE DOES NOT LIKE TO TAKE MEDICINE". PATIENT DRINK 200 ML OF WATER. PATIENT REPOSITION.
[2019-11-26 11:13] VITALS: BP 103/55
[2019-11-26 15:45] VITALS: BP 103/60
--- NOTE | 2019-11-26 18:58 | NUR ---
REPORT RECEIVED FROM DAY NURSE. PT RESTING IN BED RESPIRATIONS EVEN AND UNLABORED ON O2 @ 2L VIA NC. NO S/S OF DISTRESS AT THIS TIME. SAFETY PRECAUTIONS IN PLACE. WILL CONTINUE TO MONITOR.
--- NOTE | 2019-11-26 19:04 | NUR ---
Patient loc improved. Patient ate 80% of lunch and drink 100% of ensure. Patient ate 60% of dinner. Patient accepting po fluids and medication. Patient alert and oriented x 4 and following commands. Has no complaints. Patient potassium was replaced during shift.
[2019-11-26 19:50] VITALS: BP 98/72
--- NOTE | 2019-11-26 19:55 | NUR ---
PT SITTING AT THE SIDE OF THE BED, ALERT. RESPIRATIONS EVEN AND UNLABORED ON RA. LUNGS SOUND DIMINISHED. PT DENIES ANY PAIN OR DISCOMFORT AT THIS TIME. SAFETY PRECAUTIONS IN PLACE. WILL CONTINUE TO MONITOR.
--- NOTE | 2019-11-27 00:16 | NUR ---
PT RESTING IN BED. RESPIRATIONS LABORED ON RA, O2 @ PT BEDSIDE. TELE IN PLACE. CALL CARRANZA WITHIN REACH. WILL CONTINUE TO MONITOR.
[2019-11-27 00:23] VITALS: BP 105/55
--- NOTE | 2019-11-27 03:58 | NUR ---
PT RESTING IN BED. NO S/S OF DISTRESS AT THIS TIME. SAFETY PRECAUTIONS IN PLACE. WILL CONITNUE TO MONITOR.
[2019-11-27 05:26] VITALS: BP 103/67
--- NOTE | 2019-11-27 05:30 | NUR ---
PT PULLED CENTRAL LINE. LINE IS INTACT, NO BLEEDING. MD NOTIFIED.
[2019-11-27 07:45] VITALS: BP 79/45
--- NOTE | 2019-11-27 07:45 | NUR ---
PT SITTING IN BED. A&O. NO DISTRESS NOTED. O2 VIA NC @2L IN PLACE. SARKAR CATHETER DRAINING VIA GRAVITY WITH SALONI COLORED URINE NOTED. PT DENIES ANY PAIN AT THIS TIME. ASSESSMENT COMPLETED. DISCUSSED POC REINFORCEMENT NEEDED. CALL LIGHT IN REACH. CONTINUE TO MONITOR.
--- NOTE | 2019-11-27 08:00 | NUR ---
SKIN CARE INSTRUCTOR NOTIFIED THAT PT HAS PULLED OUT CENTRAL LINE. PER SKIN CARE INSTRUCTOR PT IS NOT REC ANY IV FLUIDS OR MEDICATIONS AT THIS TIME SO IT IS OKAY TO BE WITHOUT AN IV
--- NOTE | 2019-11-27 12:40 | NUR ---
PT EATING LUNCH WITH FAMILY MEMBER AT BEDSIDE. NO DISTRESS NOTED. CALL LIGHT IN REACH CONTINUE TO MONITOR.
--- NOTE | 2019-11-27 16:20 | NUR ---
PT ATTEMPTED TO GET OUT OF BED. REORIENTED PT AND ASSISTED HIM BACK INTO BED. BED ALARM IN PLACE TO PREVENT A FALL. CALL LIGHT IN REACH. CONTINUE TO MONITOR.
[2019-11-27 16:42] VITALS: BP 88/54
[2019-11-27 16:44] VITALS: BP 104/59
--- NOTE | 2019-11-27 18:50 | NUR ---
REPORT RECEIVED FROM AHMET MCCALL. PT RESTING IN BED NO S/S OF DISTRESS AT THIS TIME. WILL CONTINUE TO MONITOR.
[2019-11-27 19:46] VITALS: BP 99/55
--- NOTE | 2019-11-27 19:46 | NUR ---
PT RESTING IN BED, ALERT. RESPIRATIONS EVEN AND UNLABORED ON O2 @ 2L VIA NC. LUNGS SOUND DIMINISHED. PEDAL PULSES WEAK. PT DENIES ANY PAIN OR DISCOMFORT AT THIS TIME. SAFETY PRECAUTIONS IN PLACE. WILL CONITNUE TO MONITOR.
[2019-11-28] VITALS (7 sets, daily range): BP systolic 79–99; BP diastolic 44–69
--- NOTE | 2019-11-28 00:20 | NUR ---
PT CLEANED UP FROM A SMALL LOOSE BM, PT REPOSITIONED IN BED. PT REPOSITIONED. SAFETY PRECAUTIONS IN [place]. WILL CONTINUE TO MONITOR.
--- NOTE | 2019-11-28 04:31 | NUR ---
VITAL SIGNS OBTAINED.
--- NOTE | 2019-11-28 07:00 | NUR ---
REPORT RECEIVED FROM CHUNG FLORES;PT APPEARS TO BE SLEEPING IN SEMI FOWLERS POSITION;RESPIRATIONS EVEN AND UNLABORED ON O2 @ 2L VIA NC;NO S/S OF DISTRESS NOTED;SARKAR CATHETER PATENT DRAINING TO GRAVITY WITH EASE;ALL SAFETY PRECAUTIONS REINFORCED WITH BED IN THE LOWEST POSITION AND BED ALARM ON FOR SAFETY;CALL LIGHT IN REACH;WILL CONTINUE TO MONITOR
--- NOTE | 2019-11-28 08:10 | NUR ---
PT RESTING IN SEMI FOWLERS POSITION,A&O X2;VS OBTAINED AND ASSESSMENT COMPLETED;PT VERY GUARDED, UNWILLING TO LET WRITTER ASSESS AND REFUSING MEDICATIONS;INSTRUCTED ON THE IMPORTANCE OF MEDICATIONS ORDERED BUT PT STILL CONTINUES TO REFUSE;RESPIRATIONS SHALLOW ON O2 @ 2L VIA NC,NON-PRODUCTIVE COUGH NOTED;ABDOMEN DISTENDED/FIRM ON PALPATION AND ACTIVE IN ALL 4 QUADRANTS;SARKAR CATHETER IN PLACE DRAINING SALONI URINE TO GRAVITY;STRONG PEDAL PULSES;NO IV,MD AWARE;PT DENIES ANY ADDITIONAL NEEDS AND IS ENCOURAGED TO CALL FOR ASSISTANCE IF NEEDED;FALL PRECAUTIONS IN PLACE WITH BED IN THE LOWEST POSITION AND CALL LIGHT IN REACH;WILL CONTINUE TO MONITOR
--- NOTE | 2019-11-28 08:35 | NUR ---
AUTUMN,ANRP AT BEDSIDE
--- NOTE | 2019-11-28 10:40 | NUR ---
AT BEDSIDE DISCUSSING POC.
--- NOTE | 2019-11-28 11:30 | NUR ---
PT RESTING IN SEMI FOWLERS POSITION;RESPIRATIONS EVEN AND UNLABORED,SHALLOW ON O2 @ 2L VIA NC;PT DENIES ANY CURRENT PAIN OR NEEDS;SARKAR CATHETER REMAINS PATENT DRAINING TO GRAVITY;ASSESSMENT REMAINS UNCHANGED AT THIS TIME;PT ENCOURAGED TO CALL FOR ASSISTANCE IF NEEDED;FALL PRECAUTIONS IN PLACE WITH BED IN THE LOWEST POSITION AND CALL LIGHT IN REACH;WILL CONTINUE TO MONITOR
--- NOTE | 2019-11-28 15:20 | NUR ---
PT RESTING IN SUPINE POSITION;RESPIRATIONS EVEN AND UNLABORED ON O2 @ 2L VIA NC;PT DENIES ANY CURRENT PAIN OR DISCOMFORTS;SARKAR CATHETER REMAINS PATENT DRAINING TO GRAVITY WITH EASE;PT ENCOURAGED TO CALL FOR ASSISTANCE IF NEEDED;FALL PRECAUTIONS IN PLACE WITH CALL LIGHT IN REACH;WILL CONTINUE TO MONITOR
--- NOTE | 2019-11-28 19:00 | NUR ---
RECEIVED REPORT FROM DAY NURSE PATIENT APPEARS TO BE SLEEPING WITH EYES CLOSED, NO DISCOMFORTS NOTED CALL LIGHT AT REACH, BED ALARM IN PLACE.
--- NOTE | 2019-11-28 21:00 | NUR ---
PATIENT ALERT AND ORIENETED X 1, DENIES PAIN OR DISCOMFORTS WITH SARKAR CATHETER DRAINING YELLOW SALONI COLORED URINE, APTIENT TURNED AND REPOSITIONED, CALL LIGHT AT REACH.
--- NOTE | 2019-11-28 23:50 | NUR ---
PATIENT APPEARS TO BE SLEEPING WITH EYES CLOSED, WITH EVEN UNLABORED BREATHING CALL LIGHT AT REACH.
[2019-11-29 03:31] VITALS: BP 106/74
--- NOTE | 2019-11-29 04:29 | NUR ---
PATIENT APPEARS TO BE SLEEPING WITH EYES CLOSED, WITH EVEN UNLABORED BREATHING CALL LIGHT AT REACH.
--- NOTE | 2019-11-29 07:00 | NUR ---
SHIFT CGANGE REPORT, PT RESTING IN BED, DENIES PAIN, SARKAR CATHETER IN PLACE WITH CLEAR YELLOW URINE, BED IN LOWEST POSITION AND CALL CARRANZA IN REACH.
[2019-11-29 09:01] VITALS: BP 106/60
[2019-11-29 10:25] LABS: CREATININE 1.8 mg/dL (0.7-1.3); MAGNESIUM 2.1 mg/dL (1.6-2.3); POTASSIUM 3.1 mmol/l (3.5-5.1)
--- NOTE | 2019-11-29 10:29 | NUR ---
11/28/2019 Patient appears much weakner today. His Am Pac score is 8 indicating the need for ECF. His bed mobility and transfers are perfromed with max assist. Nursing has him appropriately positioned for sacral relief when I enter the room. He is able to stand and c/o light headedness. I had no time to check his BP but he shows signs of orthostatic hypotension. Our plan at this point is to continue to move and mobilize him to tolerance in an effort to relieve pressure areas and to increase his independence in doing so. He should be able to perform bed to chair transfers as a goal as well
[2019-11-29 10:57] VITALS: BP 92/80
--- NOTE | 2019-11-29 13:44 | NUR ---
PT RESTLESS TOSSING AND TURING IN BED, DENIES PAIN, REFUSED ALL MEALS, VOMITTED UNDIGESTED JELLO, WILL CONTINUE TO MONITOR.
--- NOTE | 2019-11-29 15:05 | NUR ---
11/29/2019 Patient was seen for funcitonal training. His Am Pac score is 9 as he is now assisting and even independently rolling STS for pressure relief. He is noted to incontinent of stool and is catheterized. He was able to sit EOB with mod/ max assist of 1 and maintain sitting balance. He then performed sit to stand with mod max assist of 1 and maintained static standing nearly 5 minutes although BP was 80/50. He was asymptomatic. He is being considered for hospice but if not, he would need extensive rehab at a slow pace and withcardiac precations in LTC Theract 30 minutes
[2019-11-29 15:30] VITALS: BP 89/51
--- NOTE | 2019-11-29 16:00 | NUR ---
APPETITE REMAINS POOR AND CONTINUES TO REFUSE ALL ORAL INTAKE EVEN AFTER BEING ENCOURAGED, WILL CONTINUE TO MONITOR.
[2019-11-29 18:15] VITALS: BP 97/67
--- NOTE | 2019-11-29 19:50 | NUR ---
PHYSICAL ASSESMENT COMPLETE. PT LAYING ON HIS SIDE, REPORTS THIS POSITION IS MOST COMFORTABLE DUE TO HIS ABDOMINAL DISTENTION. DINNER TRAY UNTOUCHED. PT REPORTS HE HAS NO APPETITE. DECLINES DINNER TRAY AND OFFERED ALTERNATIVES. TOLERATES PO FLUIDS WELL. HS MEDS GIVEN, SEE MAR. PT TOLERATES PILLS WHOLE W/ SIPS OF WATER. PLAN OF CARE REVIEWED W/ PT. PT VERBALIZES UNDERSTANDING AND DENIES QUESTIONS. BED LOCKED IN LOW POSITION W. BEDRAILS UPX2. PT'S ITEMS WITHIN REACH. CALL CARRANZA WITHIN REACH, AGREES TO CALL PRN.
--- NOTE | 2019-11-30 00:05 | NUR ---
PT APPEARS TO BE SLEEPING COMFORTABLY. NO APPARENT DISTRESS. RESP REG&UNLABORED. NO CHANGES IN ASSESMENT. FALL AND SAFETY INTERVENTIONS REMAIN IN PLACE. CALL CARRANZA REMAINS WITHIN REACH.
[2019-11-30 03:11] VITALS: BP 78/50
--- NOTE | 2019-11-30 05:23 | NUR ---
PT APPEARS TO BE SLEEPING COMFORTABLY. WAKES EASILY FOR AM MED (SEE MAR) NO APPARENT DISTRESS. RESP REG&UNLABORED. NO CHANGES IN ASSESMENT. FALL AND SAFETY INTERVENTIONS REMAIN IN PLACE. CALL CARRANZA REMAINS WITHIN REACH.
[2019-11-30 05:50] VITALS: BP 99/66
--- NOTE | 2019-11-30 07:00 | NUR ---
SHIFT CHANGE REPORT, PT AWAKE AND ALERT RESTING IN BED, O2 @ 2L VIA NC IN PLACE, RESTLESS BUT DENIES PAIN, ASSISTED WITH REPOSITIONING AND SET UP FOR MEAL, ABDOMEN REMAINS DISTENDED AND FIRM, CALL CARRANZA IN REACH.
[2019-11-30 07:16] VITALS: BP 97/50
--- NOTE | 2019-11-30 09:51 | NUR ---
MORE TALKATIVE THIS AM AFTER GETTING PHONE CALL FROM FAMILY, ASSISTED TO BSC THEN BACK TO BED, VERY WEAK AND VERY SLOW TO MOVE, WILL CONTINUE TO MONITOR.
--- NOTE | 2019-11-30 11:56 | NUR ---
11/30/19 Patient is seen for functional training and assessment this morning. His Am pac score is 9 and is assisting nursing turning STS which was one of his functional goals. He was able to transfer supine to sit and sit SPT with mod max assist of 1. I positioned him with feet down in proper seated posture. He remained sitting in bed to improve his endurance and assist nursing in pressure relief for his skin. He was dyspneic x 2 . He would do well in an ECF if at all possible. This is the first time I have noticed him being able to sit up and stand up in a few days. He would improve functionally with fairly intensive ECF to work on safe transfers with cardiac precautions. He is confused today.
--- NOTE | 2019-11-30 15:25 | NUR ---
PM note- patient is able to stand and take 2-3 steps. Am Pac improving to 9. He has a better affect this afternoon and is responding well to nursing He is seen for transfer training
--- NOTE | 2019-11-30 15:27 | NUR ---
ASSISTED OUT OF BED AND TO RECLINER, REMAINS VERY WEAK, USES WALKER TO TRANSFER AND TAKE VERY FEW STEPS.
[2019-11-30 15:31] VITALS: BP 95/55
--- NOTE | 2019-11-30 18:08 | NUR ---
SAT UP IN CHAIR FOR 1 HOUR, JUST ASSISTED BACK TO BED WITH MAX ASSIST, ALARM ON AND CALL CARRANZA IN REACH.
[2019-11-30 18:52] VITALS: BP 99/65
--- NOTE | 2019-11-30 19:00 | NUR ---
REPORT RECEIVED FROM CHUNG SERNA. PT RESTING IN BED. RESPIRATIONS SHALLOW ON RA. NO S/S OF DISTRESS AT THIS TIME. WILL CONITNUE TO MONITOR.
--- NOTE | 2019-11-30 21:13 | NUR ---
PT RESTING IN BED. RESPIRATIONS SHALLOW ON RA. LUNGS SOUND DIMINISHED. PEDAL PULSES WEAK. PT DENIES ANY PAIN OR DISCOMFORT AT THIS TIME. SAFETY PRECAUTIONS IN PLACE. WILL CONTINUE TO MONITOR.
--- NOTE | 2019-12-01 01:11 | NUR ---
PT RESTING IN BED RESPIRATIONS EVEN AND UNLABORED ON RA. NO S/S OF DISTRESS AT THIS TIME. WILL CONTINUE TO MONITOR.
[2019-12-01 04:30] VITALS: BP 96/68
--- NOTE | 2019-12-01 04:32 | NUR ---
PT RESTING IN BED NO S/S OF DISTRESS AT THIS TIME. WILL CONTINUE TO MONITOR.
--- NOTE | 2019-12-01 07:11 | NUR ---
SHIFT CHANGE REPORT, PT AWAKE, NO CO DISCOMFORT, O2 @ 2L VIA NC IN PLACE, SARKAR IN PLACE WITH SALONI URINE, CALL CARRANZA IN REACH AND ALARM ON.
[2019-12-01 08:37] VITALS: BP 85/52
--- NOTE | 2019-12-01 12:00 | NUR ---
PHYSICAL THERAPIST ASSISTED TO RECLINER WHERE HE IS SITTING, HE DENIES PAIN BUT NURSE OBSERVES DISCOMFORT IN HIS BEHAVIOR, REPOSITIONED FREQUENTLY AND OFFERED LIQUIDS.
--- NOTE | 2019-12-01 14:48 | NUR ---
The patient is seen for functional training and mobility. He was able to transfer bed to chair today with mod assist of 1. He was even able to take a couple of steps with the FWW but was limited by dyspnea. His BP 88/40 after treatment. Patient is slowly progressing. His Am Pac is unchanged and he is a good ECF candidate. If he were to go home he woud need attentive family/ caregiver and home health rehab Dynamic therapeutic activity x 15 min
[2019-12-01 15:02] VITALS: BP 97/52
--- NOTE | 2019-12-01 15:44 | NUR ---
RESTING IN BED AT THIS TIME, ALL NEEDS MET/ADDRESSED, CALL CARRANZA IN REACH.
[2019-12-01 19:56] VITALS: BP 96/62
--- NOTE | 2019-12-01 20:00 | NUR ---
PT IS AWAKE, RESPONDS APPOROPRIATELY. ALERT AND ORIENTED. NO C/O AT THIS TIME. BREATHING IS EVEN AND UNLABORED ON ROOM AIR. SINUS RYTHMSON MONITOR. CALL LIGHT IN REACH.
--- NOTE | 2019-12-01 22:16 | NUR ---
PT SLEEPING QUIETLY AT THIS TIME. EASILY AROUSABLE. CALL LIGHT IN REACH.
[2019-12-02 05:38] VITALS: BP 98/64
--- NOTE | 2019-12-02 07:45 | NUR ---
SHIFT CHANGE REPORT, PT AWAKE AND ALERT, BEING ASSISTED TO RECLINER AT THIS TIME, NO C/O DISCOMFORT, REMAINS VERY WEAK, SARKAR CATHETER IN PLACE WITH SALONI URINE, CALL CARRANZA IN REACH.
[2019-12-02 09:11] VITALS: BP 88/53
--- NOTE | 2019-12-02 11:38 | NUR ---
PT note Patient is seen for re- exam and update of his goals Bed mobility- he has improved with STS rolling and assists staff in proper positoining Transfers- Mod assist currently but has been max assist of 2 early on. He is slowly improving Gait- now taking 2-4 steps every time we perform standing. Standing endurance- improved to 5 minutes with blunted vital signs but improving New STG 1. Min assist bed to chair transfers New LTG Min assist in room ambulation with FWW and vitals stable in 7 days frequency 1-2 daily for 5/ days
[2019-12-02 14:40] VITALS: BP 98/58
--- NOTE | 2019-12-02 15:34 | NUR ---
SITTING UP IN RECLINER AT THIS TIME, REFUSES TO EAT OR HAVE ANY LIQUIDS BESIDES H2O, CALL CARRANZA IN REACH.
--- NOTE | 2019-12-02 17:56 | NUR ---
SAT UP IN RECLINER OVER A COUPLE OF HOURS, ASSISTED BCK TO BED REQUESTED, CALL CARRANZA IN RECH AND BED ALARM ACTIVATED.
[2019-12-02 19:00] VITALS: BP 88/50
--- NOTE | 2019-12-02 20:45 | NUR ---
PT ASSESSMENT COMPLETED AND PT MEDICATED ORDERS PROVIDE. PT CLEANED OF INCONTINENT URINE AND GOWN CHANGED. PT APPERS CONFUSED AND LOC TO SELF ONLY. BED ALARM IS ON. PICTURES OBTAINED OF STAGE II WOUND TO LEFT HIP AND ARE REDDENED. AQUACILL PLACED TO L.HIP AND PILLOWS POSITIONED TO MAINTAIN PT TO RIGHT SIDE.
[2019-12-03 03:50] VITALS: BP 81/51
--- NOTE | 2019-12-03 04:13 | NUR ---
LAB IN W/PT. NO S/O DISTRESS NOTED.
--- NOTE | 2019-12-03 05:31 | NUR ---
PT MEDICATED ORDERS PROVIDE AND CLEANED OF URINE. SARKAR CATHETER APPEARED TO HAVE LEAKED. NO APPARENT LEAKING AT THIS TIME. WILL CONTINUE TO MONITOR FOR LEAKAGE OF SARKAR. PT TOLERATED WELL AND REPOSITIONED FOR PRESSURE.
[2019-12-03 06:12] LABS: CREATININE 1.9 mg/dL (0.7-1.3); MAGNESIUM 1.9 mg/dL (1.6-2.3); POTASSIUM 3.1 mmol/l (3.5-5.1)
[2019-12-03 07:45] VITALS: BP 91/58
--- NOTE | 2019-12-03 07:45 | NUR ---
ASSESSMENT IS COMPLETED:PT IS A LITTLE CONFUSED ON HIS WHERE ABOUTS. NO IV SITE .PT ASKING FOR HIS SON IN LAW. HR IS IRREGULAR, BREATH SOUNDS ARE CLEAR,BILATERAL. ABD IS DISTENDED AND FIRM. HAS A SMALL SPOT ON HIS LEFT THIGH. [place]. PT WILL NOT KEEP DRESSING IN PLACE. SARKAR DRAINING SALONI URINE. CONTINUE TO OSBERVE AND MONITOR.
--- NOTE | 2019-12-03 10:14 | NUR ---
PT IS RELAXING IN BED WATCHING TV.WITH NO DISTRESS NOTED.
--- NOTE | 2019-12-03 11:29 | NUR ---
RECEIVED A CALL FROM LAB RE: COVID 19 NOT DETECTED.
[2019-12-03 11:46] LABS: URINE BILIRUBIN - DIPSTICK NEGATIVE (NEGATIVE); URINE BLOOD DIPSTICK LARGE (NEGATIVE); URINE COLOR YELLOW; URINE GLUCOSE - DIPSTICK NEGATIVE (NEGATIVE); URINE KETONE NEGATIVE (NEGATIVE); URINE NITRITE - DIPSTICK NEGATIVE (Negative); URINE PH 5.5 (4.5-8.0); URINE PROTEIN - DIPSTICK TRACE mg/dL (NEG-TRACE); URINE SPECIFIC GRAVITY 1.015; URINE UROBILINOGEN - DIPSTICK 0.2 E.U./dL (0.2)
[2019-12-03 11:59] LABS: URINE LEUK ESTERASE SMALL (NEGATIVE)
--- NOTE | 2019-12-03 12:00 | NUR ---
PT IS RELAXING IN BED WITH NO DISTRESS NOTED. CONTINUE TO OBSERVE AND MONITOR.
[2019-12-03 12:02] LABS: URINE RBC 25-50 RBC/hpf (0-5)
[2019-12-03 12:03] LABS: URINE AMORPH SEDIMENT FEW hpf (NONE-FER); URINE SQUAMOUS EPITHELIAL CELL FEW EPI/hpf (0-FEW)
[2019-12-03 15:30] VITALS: BP 96/72
--- NOTE | 2019-12-03 16:00 | NUR ---
PT HAS BEEN INCONTINENT OF STOOL. ATTEMPTING TO CLEAN HIMSELF UP. VISUALIZING PAIN BUT DENIES.,
--- NOTE | 2019-12-03 17:35 | NUR ---
PT IS RESTING IN BED , HAS BEEN "DIGGING IN HIS BOTTOM, HAVING STOOL". INQUIRED IF HE WAS CONSTIPATED STATED'NO". CONTINUE TO OBSERVE AND MONITOR.
--- NOTE | 2019-12-03 20:50 | NUR ---
PT SITTING ON SIDE OF THE BED REFUSING TO MOVE OR ALLOW ME TO CLEAN HIM UP OR HELP HIM INTO BED. PT DENIES PAIN/N/V. PT MEDICATED AND ASSESSED AT THIS TIME. NO S/O DISTRESS. BED ALARM IS ON.
[2019-12-03 21:02] VITALS: BP 92/64
--- NOTE | 2019-12-03 22:00 | NUR ---
PT CLEANED OF INCONTINENT STOOL. PT SITTING ON SIDE OF THE BED REFUSING TO LAY DOWN OR GET UP IN ORDER TO BE CLEANED. PT FINALLY AGREED AND HE WAS ABLE TO BE CLEANED UP. PT REPORTS BEING TIRED AND COLD SO WE ASSISTED HIM TO LAY DOWN IN BED W/CLEAN BEDDING AND LIGHTS LOW, TV LEFT ON. BED ALARM IS ON. PT DENIES PAIN, STATES "I DON'T FEEL GOOD" BUT WHEN ASKED WHAT HE IS FEELING LIKE, HE DOES NOT SEEM TO BE ABLE TO EXPRESS IT. PT DID NOT EAT AND IS REFUSING SNACK OR ASSISTANCE W/FOOD AT THIS TIME.
--- NOTE | 2019-12-04 00:25 | NUR ---
PT SLEEPING AT THIS TIME. NO S/O DISTRESS NOTED. SARKAR CATHETER DRAINING TO GRAVITY.
--- NOTE | 2019-12-04 04:10 | NUR ---
PT CLEANED OF INCONTINENT STOOL AND V/S ASSESSED. PT HAD STOOL ON HIS HANDS, BED, BEDDING, CHEST AND ELSEWHERE. BEDDING CHANGED AND NEW GOWN PLACED. SARKAR CATH CARE PROVIDED ALONG W/BEDBATH. PT REPOSITIONED FOR COMFORT AND ASSISTED W/PO FLUIDS.
[2019-12-04 04:15] VITALS: BP 98/74
--- NOTE | 2019-12-04 06:03 | NUR ---
PT REFUSED TO TAKE HIS SYNTHROID AT THIS TIME. NO S/O DISTRESS. PT WAS SLEEPING WHEN I ENTERED THE ROOM.
--- NOTE | 2019-12-04 07:16 | NUR ---
REPORT GIVEN BY ARABELLA WILKES
[2019-12-04 07:45] VITALS: BP 90/54
--- NOTE | 2019-12-04 07:45 | NUR ---
ASSESSMENT IS COMPLETED: SARKAR INTACT DRAINING YELLOW URINE. HR IS REG,PULSES ARE STRONG X4, ABD IS DISTENDED AND FIRM. +2 EDEMA NOTED ON BILATERAL FEET. PT IS SITTING ON THE SIDE OF THE BED, CONTINUE TO OSBERVE AND MONITOR.
--- NOTE | 2019-12-04 09:47 | NUR ---
PT SOILED HIMSELF HAD IT ON THE BED. CLEANED PT UP AND ENCOURAGED TO KEEP FINGERS OFF OF THE BACK SIDE. PT REFUSED MEDICATIONS AT THIS TIME.
--- NOTE | 2019-12-04 12:00 | NUR ---
PT IS RELAXING AND REFUSING TO EAT AT THIS TIME. NO DISTRESS NOTED. CONTINUE TO OSBERVE AND MONITOR.
--- NOTE | 2019-12-04 14:00 | NUR ---
PT HAD A BM CLEANED UP AND CHANGED THE SARKAR STRAP. CONTINUE TO OSBERVE AND MONITOR.
[2019-12-04 15:07] VITALS: BP 90/54
--- NOTE | 2019-12-04 16:34 | NUR ---
PT IS REFUSING MEDICATION AT THIS TIME. NOT WANTING TO TAKE MEDS RIGHT NOW.
--- NOTE | 2019-12-04 19:30 | NUR ---
PATIENT HAD A BM, PARTIAL BED BATH GIVEN. SHEETS CHANGED AND CATH CARE PROVIDED.
[2019-12-04 19:56] VITALS: BP 90/59
--- NOTE | 2019-12-05 00:10 | NUR ---
PT REPOSITIONED IN THE BED. PT HAD GOWN OFF AND COVERS THROWN ON THE FLOOR AND WAS C/O BEING COLD. ASSISTED PT TO REDRESS IN GOWN AND COVERED W/NEW BLANKETS. CALL LIGHT NEXT TO PT ON BST W/IN REACH AND BED ALARM IS ON.
--- NOTE | 2019-12-05 03:00 | NUR ---
PT SITTING ON SIDE OF THE BED CALLING OUT AND PUSHING CALL LIGHT. UPON ENTERING ROOM,PT WAS FOUND SITTING ON SIDE OF THE BED W/BEDDING THROWN TO THE FLOOR AND GOWN OFF. HE C/O BEING COLD. I CLEANED PT OF SMALL AMOUNT OF STOOL AND ASSISTED HIM LAYING BACK DOWN IN THE BED, SARKAR INSERTION SITE INTACT. PT REGOWNED AND NEW BLANKETS PROVIDED AND HOB POSITIONED FOR COMFORT.
[2019-12-05 04:51] LABS: HEMOGLOBIN 13.3 g/dl (14.0-18.0); MEAN CELL VOLUME 90.7 fL CALC (80.0-100.0); MEAN CORPUSCULAR HGB 29.4 pG CALC (26.0-32.0); MEAN CORPUSCULAR HGB CONC 32.4 g/dL CAL (32.0-36.0); RED BLOOD COUNT 4.52 mill/uL (4.70-6.10); RED CELL DISTRI WIDTH 19.7 % (11.5-15.5)
[2019-12-05 05:06] LABS: CREATININE 2.1 mg/dL (0.7-1.3); POTASSIUM 3.8 mmol/l (3.5-5.1)
--- NOTE | 2019-12-05 05:37 | NUR ---
V/S ASSESSED AND PT MEDICATED ORDERS PROVIDE.
[2019-12-05 05:38] VITALS: BP 90/53
--- NOTE | 2019-12-05 06:33 | NUR ---
CRITICAL LAB RESULT BUN 85. PHYSICIAN NOTIFIED AND NEW ORDERS RECEIVED FOR RENAL CONSULT AND GENTAL HYDRATION OF NS @100.
[2019-12-05 08:38] VITALS: BP 95/56
--- NOTE | 2019-12-05 10:47 | NUR ---
PATIENT RESTING IN BED ON LEFT SIDE,NAKED AND GRUNTING HE "BEARING DOWN" IN ATTEMPT TO HAVE BM. PATIENT REQUEST TO SEE MD, STATING "I WANT A PILLOW, AND THE DR TO PUT ME OUT OF MY MISERY". ATTEMPTED TO ADMINISTER ANTIBIOTIC THAT WAS ORDERED FOR PATIENT. PATIENT STATED "IM NOT GOING TO TAKE ANY MORE MEDICATION". PATIENT WAS AGREEABLE TO PUTTING NC CANULA BACK ON.
--- NOTE | 2019-12-05 10:54 | NUR ---
CALLED AND SPOKE TO TERESITA AT DR. GUZMAN OFFICE REGARDING THIS PT FOR CONSULTATION. GAVE DATE OF , DIAGNOSIS, AND ROOM NUMBER FOR THIS PT. STATED SHE WILL GIVE DR. GUZMAN THE CONSULTATION DIRECTLY.
--- NOTE | 2019-12-05 11:36 | NUR ---
PT note Patient attempting to get OOB on his own in AM I assisted with transfer which is now being performed with mod assist as he gains strength. His Am Pac score is 10. He demonstrates improved bed mobility and transfer but did not progress with ambulation taking only 4 steps to bedside chair. His vitals remained stable but he was limited by dypnea He is a good rehab candidate and would benefit from therapy intervention to increase independence and reduce his burden of care
[2019-12-05 15:28] VITALS: BP 85/53
[2019-12-05 19:33] VITALS: BP 87/59
--- NOTE | 2019-12-05 20:00 | NUR ---
PT LAYING IN BED. A&O. NO DISTRESS NOTED. PALE APPEARANCE. O2 VIA NC @2L IN PLACE. REPOSITONED NC IN NARES. SARKAR CATHETER IN PLACE DRAINING VIA GRAVITY WITH A SMALL AMOUNT OF URINE NOTED. PT DENIES ANY PAIN AT THIS TIME. NO OTHER NEEDS AT THIS TIME. ASSESSMENT COMPLETED. DISCUSSED POC. CALL LIGHT IN REACH. CONTINUE TO MONITOR.
--- NOTE | 2019-12-05 20:39 | NUR ---
ENCOURAGED PT TO DRINK EXTRA FLUID TO ASSIST WITH URINE PRODUCTION. PT COOPERATED AND CONSUMED ONE CUP OF WATER AND ONE CUP OF OJ. WILL CONTINUE MONITOR URINE OUTPUT.
--- NOTE | 2019-12-05 21:41 | NUR ---
BED ALARM ACTIVE, CHECKED ON PT, GOWNS WERE OFF AND PT SITTING ON THE SIDE OF THE BED. REORIENTED PT. GOWNS PLACED BACK ON. ABD DISTENDED BUT SOFT. PER PT SOME SLIGHT DISCOMFORT IN LOWER ABD AND STATES THAT HE HAS TO URINATE, EXPLAINED TO PT THAT CATHETER WAS IN PLACE,PT RESPONDED "OH YEAH THAT IS RIGHT". ASSISTED PT BACK IN BED. NEW BLANKETS IN PLACE. BED ALARM PLACED. CALL LIGHT WITHIN REACH. DOOR LEFT OPENED. CONTINUE TO MONITOR
--- NOTE | 2019-12-05 21:59 | NUR ---
ORDERS FOUND HAVE GENTLE HYDRATION OF NORMAL SALINE @100. NO IV SITE IN PLACE. IV TO BE ATTEMPTED BY BEBA WILKES. ORDER FAXED TO FOR NS
--- NOTE | 2019-12-05 22:02 | NUR ---
PER BEBA, PT COVERED WITH FECES IN HIS HANDS. PT TO BE CLEANED AND REDRESSED BEFORE IV ATTEMPT IS MADE.
--- NOTE | 2019-12-05 22:30 | NUR ---
PT HAD A X1 EPISODE OF VOMITING BUT DENIES CURRENT NAUSEA, STATES " I DON'T REGULARLY DO THIS YOU KNOW" . ASSISTED PT BACK INTO BED. EMESIS BAG GIVEN. CALL LIGHT IN REACH. BED ALARM IN PLACE. CONTINUE TO MONITOR
--- NOTE | 2019-12-05 23:00 | NUR ---
NEW IV INITIATED BY CANDICE WILKES.#24 TO [facility]
--- NOTE | 2019-12-05 23:58 | NUR ---
PT LAYING IN BED. NO DISTRESS NOTED. REAPPLIED O2. NO DISTRESS NOTED. CONTINUE TO MONITOR.
--- NOTE | 2019-12-06 00:10 | NUR ---
PATIET RESTING IN BED AT THIS TIME-AWAKE ALERT AND WATCHING TV WITH O2 VIA NASAL CANNULA IN PLACE. ZOSYN HUNG ORDERED VIA LEFT HAND SITE. SITE REMAINS HEALTHY AT THIS TIME. TELE MONITOR IN PLACE. REMAINS ON ISOLATION IN NEG PRESSURE ROOM. SAFETY PRECAUTIONS REINFORCED. CALL LIGHT IN REACH. WILL CONT TO MONITOR.
[2019-12-06 03:30] VITALS: BP 90/62
--- NOTE | 2019-12-06 04:13 | NUR ---
LICENSED PHARMACIST AT BEDSIDE COMPLETED VENIPUNCTURE. URINE OUTPUT SLOWLY INCREASING CURRENTLY AT 100CC. URINE SALONI IN COLOR.
[2019-12-06 05:45] LABS: ALBUMIN 3.3 g/dL (3.2-5.0); CREATININE 2.5 mg/dL (0.7-1.3); POTASSIUM 4.2 mmol/l (3.5-5.1)
--- NOTE | 2019-12-06 05:59 | NUR ---
CRITICAL BUN RESULT OF 92. DR CULLEN NOTIFIED, NOTIFIED PHYSICIAN OF TREND AND THAT IV FLUIDS WERE FINALLY INITIATED LAST NIGHT. PER ALYSE " OH SO THIS IS BASICALLY NOTHING" AND HUNG UP.
[2019-12-06 07:43] VITALS: BP 82/47
--- NOTE | 2019-12-06 09:00 | NUR ---
PT WITH DIARRHEA THIS MORNING, CLEANED BY BUSINESS DEVELOPMENT ASSISTANT. PT WITH REDNESS TO PERINANAL AREA, BARRIER CREAM APPLIED. PT IS CONFUSED, SOMETIMES IGNORES QUESTIONS, SOMETIMES HAS INPUT. SON CALLED AND WAS UPDATED.
[2019-12-06] MEDS ORDERED: AMOXICILLIN500 M2 PO (11:07)
[2019-12-06] MEDS ORDERED: BUMETANIDE1 MG PO (11:07)
[2019-12-06] MEDS ORDERED: MIDODRINE10 MG PO (11:07)
[2019-12-06 15:29] VITALS: BP 84/57
--- NOTE | 2019-12-06 15:56 | NUR ---
PT WITH MINIMAL URINARY OUTPUT TODAY. U/S BLADDER SHOWED 260 ML IN BLADDER, BUT FLUSHING DID NOT RESULT IN BETTER DRAINAGE. PT DOES NOT SEEM TO BE IN ANY DISCOMFORT. HE REMAINS CONFUSED, TALKS ABOUT GOING HOME, SOMETIMES COHERENT.
--- NOTE | 2019-12-06 18:35 | NUR ---
PT NOW RESTING ON HIS SIDE, NOT EATING SUPPER DESPITE ENCOURAGEMENT TO DO SO. SARKAR WITH MINIMAL OUTPUT STILL, BUT NO COMPLAINT OF BLADDER PAIN.
[2019-12-06 19:27] VITALS: BP 84/47
--- NOTE | 2019-12-06 19:30 | NUR ---
PT. RESTING IN BED ON LEFT SIDE WITH NO DISTRESS NOTED. PT. IS A/A/O AT THIS TIME. SARKAR CATHETER DRAINING AT GRAVITY LEVEL WITH MINIMAL SALONI URINE WITH SEDIMENTS NOTED. IV SITE PATENT AND INFUSING ORDERED IVF @[facility] WITHOUT DIFFICULTY. SAFETY PRECAUTIONS IN PLACE. CALL LIGHT IS IN REACH.
--- NOTE | 2019-12-06 23:21 | NUR ---
RESTING IN BED WITH EYES CLOSED; NO RESP.DISTRESS NOTED; CALL LIGHT IS IN REACH.
--- NOTE | 2019-12-07 02:59 | NUR ---
PT. C/O UPSET STOMACH AND MEDICATED WITH ORDERED MAALOX AND ZOFRAN; WILL REASSESS. BED ALARM ON.
--- NOTE | 2019-12-07 04:35 | NUR ---
PT. PULLED UP IN BED AND REPOSITIONED.CHECKED FOR INCONTINENCE OF STOOL AND NONE NOTED.BED ALARM ON.
[2019-12-07 05:33] LABS: CREATININE 2.5 mg/dL (0.7-1.3); MAGNESIUM 2.1 mg/dL (1.6-2.3); POTASSIUM 4.2 mmol/l (3.5-5.1)
[2019-12-07 05:40] VITALS: BP 93/67
--- NOTE | 2019-12-07 07:00 | NUR ---
SHIFT CHANGE REPORT, PT AWAKE AND ALERT RESTING IN BED, NO C/O DISCOMFORT, IVF INFUSING, SARKAR CATHETER IN PLACE WITH SALONI URINE, CALL CARRANZA IN REACH.
--- NOTE | 2019-12-07 08:03 | NUR ---
12/06/19 Patient is seen for monitired bed to chair transfers. Despite our best efforts, he is having some skin breakdown in multiple areas. This is in large part due to his lack of intake and muscle loss. I repositioned him int he AM and in the late AM got him OOB to stand. He moves at a very slow pace. He was able to take 6 steps. His Am Pac score is unchanged and I still believe he is a good ECF rehab candidate as he is slowly progressing with function. His abdomen remains distended. He does assist with transfes and is able to perfrom sit to stand and supine to sit with mod assist of 1.
[2019-12-07 08:43] VITALS: BP 128/85
--- NOTE | 2019-12-07 09:00 | NUR ---
SUSAN ROUNDED, PT EXPRESSED DESIRE TO [place] IF ANYONE COULD HELP HIM TO GO HOME TO [facility], HE CONFORMED HE WANTS TO , ROB ASKED HIM IF HE WANTED TO BE CONSULTED B HOSPICE AND HE AGREED TO. WILL CONTINUE TO MONITOR AND ADDRESS NEEDS. DR DAY ALSO ROUNDED, DID BLADDER IRRIATION, NO NEW ORDERS.
--- NOTE | 2019-12-07 15:19 | NUR ---
REPORT GIVEN TO NURSE LEY AT [facility], TRANSPORTERS HERE AT THIS TIME RECEIVING PT.
[2019-12-07 15:24] VITALS: BP 89/55
--- NOTE | 2019-12-07 15:47 | NUR ---
Discharge instructions given. Patient verbalizes understanding of same. Discharged in poor condition via Medical Transport to [facility] with *Other. All belongings sent with pt.
== END 2019-12-07 15:28 | DRG 291 ==
LOC: MS2 12:43 → ICU 12:43 → MS2 11-23 09:25
PROVIDERS: Internal Medicine Nephrology; Nurse Practitioner Family; ADMIT Internal Medicine; ATTEND Internal Medicine
PROC: 0T9B70Z Drainage of Bladder with Drainage Device, Via Natural or Artificial Opening (ICD-10-PCS; principal; 2019-11-17)
PROC: 02HV33Z Insertion of Infusion Device into Superior Vena Cava, Percutaneous Approach (ICD-10-PCS; 2019-11-17)
DX: I13.0 Hypertensive heart and chronic kidney disease with heart failure and stage 1 through stage 4 chronic kidney disease, or unspecified chronic kidney disease (principal); I50.23 Acute on chronic systolic (congestive) heart failure; N17.0 Acute kidney failure with tubular necrosis; J96.21 Acute and chronic respiratory failure with hypoxia; J18.9 Pneumonia, unspecified organism; E87.2 Acidosis; E87.1 Hypo-osmolality and hyponatremia; R18.8 Other ascites; N39.0 Urinary tract infection, site not specified; N13.8 Other obstructive and reflux uropathy; N18.3 Chronic kidney disease, stage 3 (moderate); I25.10 Atherosclerotic heart disease of native coronary artery without angina pectoris; I95.9 Hypotension, unspecified; I42.0 Dilated cardiomyopathy; I49.3 Ventricular premature depolarization; I44.7 Left bundle-branch block, unspecified; D63.1 Anemia in chronic kidney disease; E78.5 Hyperlipidemia, unspecified; E03.9 Hypothyroidism, unspecified; H54.62 Unqualified visual loss, left eye, normal vision right eye; E87.6 Hypokalemia; B95.2 Enterococcus as the cause of diseases classified elsewhere; R62.7 Adult failure to thrive; N40.1 Benign prostatic hyperplasia with lower urinary tract symptoms; R33.8 Other retention of urine; Z68.23 Body mass index [BMI] 23.0-23.9, adult; Z66 Do not resuscitate; Z53.20 Procedure and treatment not carried out because of patient's decision for unspecified reasons; Z86.19 Personal history of other infectious and parasitic diseases; Z20.828 Contact with and (suspected) exposure to other viral communicable diseases; R14.0 Abdominal distension (gaseous); R80.9 Proteinuria, unspecified; K80.80 Other cholelithiasis without obstruction; N28.1 Cyst of kidney, acquired
CPT/HCPCS: J0692